=== PATIENT | female | born 1960 | race Caucasian/White ===

== ENCOUNTER 2021-03-15 06:44 | Observation (INO) | payer OTHER, SELFPAY ==
[2021-03-15] VITALS (17 sets, daily range): BP systolic 116–172; BP diastolic 60–98; PULSE 69–139; RESP 16–22; TEMP 36.6–37.2; O2SAT 95–100; BMI 23.4
--- NOTE | 2021-03-15 06:56 | CT_ITS ---
WS: [id number] CT ABDOMEN PELVIS TECHNIQUE: Contrast-enhanced CT of the abdomen and pelvis with coronal and sagittal reformatted image s. CLINICAL INFORMATION: abd pain COMPARISON: CT 5 12,018 DLP: 767.[address] scans at [facility] use at least one of these dose optimization techniques: automat ed exposure control; mA and/or kV adjustment per patient size (includes targeted exams where dose is matched to clinical indication); or iterative reconstruction. FINDINGS:Mild colonic wall thickening and submucosal enhancement involving the cecum and ascending co gigi extending into the transverse colon suspicious for infectious or inflammatory colitis. More sandie l appearing descending colon and sigmoid. Diffuse fatty infiltration the liver. Prior cholecystectomy. Normal spleen. Prior hysterectomy. Prior appendectomy. Portal vein and splenic vein are patent. Mild fatty atrophy of the pancreas. Small eso phageal hiatal hernia. Lung bases are well aerated. Adrenal glands are normal. Normal renal parenchym al enhancement. No hydronephrosis. Normal caliber abdominal aorta. Mild sigmoid constipation. A few normal caliber fluid-filled loops of small bowel in the midabdomen and pelvis. No evidence of high-grade obstruction. No abdominal or pel yasir lymphadenopathy. No inguinal lymphadenopathy. CT/CT abdomen pelvis w con* [id number] IMPRESSION: 1. Mild colonic wall thickening and submucosal enhancement involving the cecum and ascending colon extending into the transverse colon suspicious for infecti ous or inflammatory colitis. More normal appearing descending colon and sigmoid . 2. Normal caliber fluid-filled small bowel loops in the midabdomen and pelvis. No evidence of high-grade obstruction. 3. Prior cholecystectomy. Prior hysterectomy and appendectomy. Postoperative c hanges involving the distal ileum. 4. Tiny esophageal hiatal hernia. 5. Mild diffuse fatty infiltration liver. 6. No other significant findings.
--- NOTE | 2021-03-15 06:59 | W.ED.ABDPA2 ---
HPI - Abdominal Pain General: Chief Complaint: Abdominal Pain Stated Complaint: ABD PAIN Time Seen by Provider: 03/15/21 06:49 History of Present Illness: HPI narrative: 61-year-old female comes in complaining of abdominal pain for the last 2 weeks with persistent nausea and vomiting. She denies any hematochezia melena hematemesis or coffee-ground emesis. Reports having multiple previous surgeries. She is on regular narcotic through her primary care doctor she takes morphine. She is also on benzodiazepines. Patient has extensive allergy list. She is not been seen in the last 2 weeks for this problem. She states she has dysuria but she denies any hematuria. MD elicited complaint: abdominal pain Onset (ago): week(s) (2) Pain Consistency: constant Location: Diffuse Severity: severe Quality: cramping Migration to: no migration Exacerbating factors: eating Relieving factors: nothing Associated Symptoms: Reports anorexia, bloating, GI cramping, dysuria, nausea, poor appetite and vomiting; Denies belching, change in bowel habits, change in stool character, chills, coffee ground emesis, constipation, diarrhea, dyspepsia, excessive flatus, fever(s), heartburn, hematochezia, hematuria, hematemesis, fecal incontinence, loose stools, melena and syncope Review of Systems Const: Denies: fever(s) or chills ENMT: Denies: throat pain, ear or mastoid pain, nasal discharge or nasal congestion Card: Denies: syncope Resp: Denies: dyspnea, productive cough or non-productive cough GI: Reports: nausea, vomiting, bloating and GI cramping; Denies: hematemesis, coffee ground emesis, heartburn, diarrhea, constipation, belching, excessive flatus, fecal incontinence, change in bowel habits, change in stool character, hematochezia or melena : Reports: dysuria; Denies: hematuria Skin/Breast: Denies: rash or pruritus PFSH ED PFSH: Medical History (Updated 03/15/21 @ 10:58 by Franklin Menjivar MD) Anxiety and depression Chronic abdominal pain History of pulmonary embolism Insomnia Migraine headache Personal history of DVT (deep vein thrombosis) Surgical History (Updated 03/15/21 @ 10:55 by Franklin Menjivar MD) History of appendectomy History of hysterectomy History of laparoscopy Multiple surgeries for adhesionolysis, history of partial small bowel resection History of removal of ovarian cyst Family History (Updated 03/15/21 @ 10:55 by Franklin Menjivar MD) Other Diabetes Social History (Updated 03/15/21 @ 10:55 by Franklin Menjivar MD) Smoking and tobacco status: never smoked Alcohol intake: never Physical Exam Const: COMMON NORMALS: no acute distress GENERAL APPEARANCE: cooperative and comfortable ORIENTATION/CONSCIOUSNESS: Yes awake, Yes oriented to person, Yes oriented to place and Yes oriented to time HENMT: COMMON NORMALS: normocephalic, atraumatic, hearing grossly normal bilaterally and external ears normal HEAD & SCALP: normocephalic and atraumatic EXTERNAL EAR: Yes external ears normal Neck/C-Spine: COMMON NORMALS: no JVD Resp: COMMON NORMALS: normal respiratory effort, No retractions, No use of accessory muscles and clear to auscultation bilaterally AUSCULTATION: clear to auscultation bilaterally Cardio: COMMON NORMALS: no JVD, regular rate, regular rhythm and No murmurs present (Cardio) RATE: regular rate RHYTHM: regular rhythm GI: COMMON NORMALS: No hepatosplenomegaly present AUSCULTATION: Yes normoactive bowel sounds PALPATION: Yes Tenderness to palpation present (GI) (Diffuse seems a little bit more focal on exam to the epigastric and left up), No Guarding due to palpation present (GI) and Yes No hepatosplenomegaly present Extremity: COMMON NORMALS: normal to inspection, capillary refill normal, no clubbing, cyanosis or edema, no calf tenderness and no pedal edema Neuro: SENSORIUM/ORIENTATION: Yes oriented to person, Yes oriented to place and Yes oriented to time Skin: COMMON NORMALS: no rashes or lesions noted GENERAL SKIN EXAM: no rashes or lesions noted Course Vital Signs: Vital signs: Vital Signs Temperature 99.0 F 03/15/21 12:00 Pulse Rate 78 03/15/21 12:44 Respiratory Rate 22 H 03/15/21 13:31 Blood Pressure 138/82 03/15/21 12:00 Pulse Oximetry 100 03/15/21 13:31 MDM - Abdominal Pain MDM Narrative: Medical decision making narrative: Patient has persistent nausea despite fluids and pain medications antiemetics complaining of persistent abdominal pain as well. She has been taking relatively large amounts of morphine. She is slightly improved but unable to go home at this point discussed Dr. Marina will admit her to [facility] for pain control fluid replacement antiemetics continued antibiotics for cystitis orders written Lab Data: Labs: Lab Results 03/15/21 03/15/21 03/15/21 Range/Units 06:59 06:59 06:59 WBC 9.9 (4.0-10.0) 10^3/ uL RBC 4.69 (4.1-5.3) 10^6/u L Hgb 14.8 (11.5-15.3) g/dL Hct 42.3 (37.0-47.0) % MCV 90.2 (81-99) fL MCH 31.6 (28.0-34.0) pg MCHC 35.0 (30.0-36.0) g/dL RDW 12.3 (12.1-15.1) % Plt Count 285 (130-400) 10^3/c mm MPV 11.4 H (7.4-10.4) fL Neut % (Auto) 55.0 % Lymph % (Auto) 37.1 % [place] % (Auto) 6.3 % Eos % (Auto) 0.6 % Baso % (Auto) 0.7 % Neut # (Auto) 5.46 (1.8-7.7) 10^3/u L Lymph # (Auto) 3.7 (0.8-4.8) 10^3/u L [place] # (Auto) 0.6 (0.2-0.9) 10^3/u L Eos # (Auto) 0.1 (0.0-0.8) 10^3/u L Baso # (Auto) 0.1 (0.0-0.1) 10^3/u L Nucleated RBC % (a uto) 0 % Nucleated RBCs # 0.0 /100WBC Sodium Cancelled Potassium Cancelled Chloride Cancelled Carbon Dioxide Cancelled Anion Gap Cancelled BUN Cancelled Creatinine Cancelled GFR Calculation Cancelled Glucose Cancelled POC Glucose (70-110) mg/dL Estimat Average Gl ucose 123 Hemoglobin A1c 5.9 (4.0-6.0) % Calculated Osmolal ity Cancelled Calcium Cancelled Magnesium (1.7-2.3) mg/dL Total Bilirubin Cancelled AST Cancelled ALT Cancelled Alkaline Phosphata se Cancelled Total Protein Cancelled Albumin Cancelled Globulin Cancelled Lipase Cancelled TSH (0.27-4.20) uIU/ mL Urine Color (Yellow) Urine Appearance (CLEAR) Urine pH (5-7) Ur Specific Gravit y (1.005-1.030) Urine Protein (Negative) Urine Glucose (UA) (Normal) Urine Ketones (Negative) Urine Blood (Negative) Urine Nitrate (Negative) Urine Bilirubin (Negative) Urine Urobilinogen (Negative) mg/dL Ur Leukocyte Trena ase (Negative) Urine RBC (0-2) /hpf Urine WBC (0-5) /hpf Ur Squamous Epith Cells (0-5) /hpf Ur Transition Epit h Cell /hpf Amorphous Sediment Urine Bacteria (NONE) /hpf Urine Mucus /hpf 03/15/21 03/15/21 03/15/21 Range/Units 07:08 07:15 07:46 WBC (4.0-10.0) 10^3/ uL RBC (4.1-5.3) 10^6/u L Hgb (11.5-15.3) g/dL Hct (37.0-47.0) % MCV (81-99) fL MCH (28.0-34.0) pg MCHC (30.0-36.0) g/dL RDW (12.1-15.1) % Plt Count (130-400) 10^3/c mm MPV (7.4-10.4) fL Neut % (Auto) % Lymph % (Auto) % [place] % (Auto) % Eos % (Auto) % Baso % (Auto) % Neut # (Auto) (1.8-7.7) 10^3/u L Lymph # (Auto) (0.8-4.8) 10^3/u L [place] # (Auto) (0.2-0.9) 10^3/u L Eos # (Auto) (0.0-0.8) 10^3/u L Baso # (Auto) (0.0-0.1) 10^3/u L Nucleated RBC % (a uto) % Nucleated RBCs # /100WBC Sodium 139 Potassium 2.8 L* Chloride 101 Carbon Dioxide 23 Anion Gap 17.8 BUN 14 Creatinine 0.8 GFR Calculation 73.4 L Glucose 118 H POC Glucose 129 H (70-110) mg/dL Estimat Average Gl ucose Hemoglobin A1c (4.0-6.0) % Calculated Osmolal ity 290 Calcium 8.6 Magnesium (1.7-2.3) mg/dL Total Bilirubin 0.6 AST 18 ALT 13 Alkaline Phosphata se 90 Total Protein 7.0 Albumin 3.9 Globulin 3.1 Lipase 29 TSH (0.27-4.20) uIU/ mL Urine Color Yellow (Yellow) Urine Appearance Cloudy (CLEAR) Urine pH 5 (5-7) Ur Specific Gravit y 1.020 (1.005-1.030) Urine Protein Neg (Negative) Urine Glucose (UA) Norm (Normal) Urine Ketones 1+ H (Negative) Urine Blood 2+ H (Negative) Urine Nitrate Negative (Negative) Urine Bilirubin 1+ H (Negative) Urine Urobilinogen 1 H (Negative) mg/dL Ur Leukocyte Trena ase 2+ H (Negative) Urine RBC 0-4 H (0-2) /hpf Urine WBC 55-80 H (0-5) /hpf Ur Squamous Epith Cells 0-4 H (0-5) /hpf Ur Transition Epit h Cell 0-4 /hpf Amorphous Sediment Not Reportable Urine Bacteria 1+ H (NONE) /hpf Urine Mucus 1+ /hpf // Range/Units 07:46 WBC (4.0-10.0) 10^3/ uL RBC (4.1-5.3) 10^6/u L Hgb (11.5-15.3) g/dL Hct (37.0-47.0) % MCV (81-99) fL MCH (28.0-34.0) pg MCHC (30.0-36.0) g/dL RDW (12.1-15.1) % Plt Count (130-400) 10^3/c mm MPV (7.4-10.4) fL Neut % (Auto) % Lymph % (Auto) % [place] % (Auto) % Eos % (Auto) % Baso % (Auto) % Neut # (Auto) (1.8-7.7) 10^3/u L Lymph # (Auto) (0.8-4.8) 10^3/u L [place] # (Auto) (0.2-0.9) 10^3/u L Eos # (Auto) (0.0-0.8) 10^3/u L Baso # (Auto) (0.0-0.1) 10^3/u L Nucleated RBC % (a uto) % Nucleated RBCs # /100WBC Sodium Potassium Chloride Carbon Dioxide Anion Gap BUN Creatinine GFR Calculation Glucose POC Glucose (70-110) mg/dL Estimat Average Gl ucose Hemoglobin A1c (4.0-6.0) % Calculated Osmolal ity Calcium Magnesium 1.5 L (1.7-2.3) mg/dL Total Bilirubin AST ALT Alkaline Phosphata se Total Protein Albumin Globulin Lipase TSH 3.29 (0.27-4.20) uIU/ mL Urine Color (Yellow) Urine Appearance (CLEAR) Urine pH (5-7) Ur Specific Gravit y (1.005-1.030) Urine Protein (Negative) Urine Glucose (UA) (Normal) Urine Ketones (Negative) Urine Blood (Negative) Urine Nitrate (Negative) Urine Bilirubin (Negative) Urine Urobilinogen (Negative) mg/dL Ur Leukocyte Trena ase (Negative) Urine RBC (0-2) /hpf Urine WBC (0-5) /hpf Ur Squamous Epith Cells (0-5) /hpf Ur Transition Epit h Cell /hpf Amorphous Sediment Urine Bacteria (NONE) /hpf Urine Mucus /hpf Discharge Plan Discharge Patient Disposition: Placed in Observation Admit Provider: Franklin Menjivar Clinical Impression: Abdominal pain, Constipation, Colitis, Cystitis Coding Level of Care Code ED Deicer Tester for Chg Fwd Exam Comprehensive
[2021-03-15] MEDS: ondansetron 2 mg/ML SDV 2 mL 4 MG IVP ×3 (07:12→21:05)
[2021-03-15] MEDS: morphine 4 mg/mL SDV 1 mL IVP ×6 (07:12→21:06)
[2021-03-15] MEDS: sodium chloride 0.9% 1,000 ML 999 ML IV (07:13)
[2021-03-15 07:17] LABS: Basophils # 0.1 10^3/uL (0.0-0.1); Basophils % 0.7 %; Eosinophils # 0.1 10^3/uL (0.0-0.8); Eosinophils % 0.6 %; Hematocrit 42.3 % (37.0-47.0); Hemoglobin 14.8 g/dL (11.5-15.3); Lymphocytes # 3.7 10^3/uL (0.8-4.8); Lymphocytes % 37.1 %; Mean Corpuscular Hemoglobin 31.6 pg (28.0-34.0); Mean Corpuscular Volume 90.2 fL (81-99); Mean Platelet Volume 11.4 fL (7.4-10.4); Monocytes # 0.6 10^3/uL (0.2-0.9); Monocytes % 6.3 %; Neutrophils # 5.46 10^3/uL (1.8-7.7); Nucleated Red Blood Cells % 0 %; Platelet Count 285 10^3/cmm (130-400); Red Blood Count 4.69 10^6/uL (4.1-5.3); Red Cell Distribution Width 12.3 % (12.1-15.1); White Blood Count 9.9 10^3/uL (4.0-10.0)
[2021-03-15 07:19] LABS: Glucose Point of Care 129 mg/dL (70-110)
[2021-03-15 07:41] LABS: Urine Appearance Cloudy (CLEAR); Urine Color Yellow (Yellow); pH Urine 5 (5-7)
[2021-03-15 07:42] LABS: Add Urine Microscopic? YES; Bilirubin Urine 1+ (Negative); Blood Urine 2+ (Negative); Glucose Urine UA Norm (Normal); Ketones Urine 1+ (Negative); Leukocyte Esterase Urine 2+ (Negative); Nitrate Urine Negative (Negative); Protein Urine Neg (Negative); Urobilinogen Urine 1 mg/dL (Negative)
[2021-03-15 07:44] LABS: Bacteria Urine 1+ /hpf; Mucus Urine 1+ /hpf; RBC Urine 0-4 /hpf (0-2); Squamous Epithelial Cell Urine 0-4 /hpf (0-5); Transitional Epi Cells Urine 0-4 /hpf; WBC Urine 55-80 /hpf (0-5)
[2021-03-15 07:45] LABS: Add Urine Culture? Yes
[2021-03-15 08:15] LABS: Alanine Aminotransferase 13 U/L (0-33); Albumin Level 3.9 g/dL (3.5-5.2); Alkaline Phosphatase 90 IU/L (35-105); Anion Gap 17.8 (5-19); Aspartate Amino Transferase 18 U/L (0-32); Blood Urea Nitrogen 14 mg/dL (6-20); Calcium 8.6 mg/dL (8.5-10.5); Carbon Dioxide 23 mmol/L (22-29); Chloride 101 mmol/L (98-107); Globulin 3.1 g/dL (1.3-4.6); Glomerular Filtration Rate 73.4 mL/min (90-130); Glucose 118 mg/dL (65-115); Lipase 29 U/L (13-60); Osmolality Calculated 290 mOsm/kg (285-295); Sodium 139 mmol/L (136-145); Total Bilirubin 0.6 mg/dL (0.15-1.2)
[2021-03-15 08:19] LABS: Potassium 2.8 mmol/L (3.5-5.1)
[2021-03-15] MEDS: iohexol 300 mg/mL 100 mL Btl IV (08:31)
[2021-03-15] MEDS: lidocaine 1% 5 ML in potassium chloride premix 100 ML 25 ML IV (08:36)
--- NOTE | 2021-03-15 08:46 | PC.NURSE ---
notified Dr. Pritchett of patient continuing pain; new order rcvd for additional pain medicine.
[2021-03-15] MEDS: ciprofloxacin 400 MG/200 ML PREMIX 200 MG IV ×2 (09:26→20:55)
[2021-03-15] MEDS: LORazepam 2 mg/mL INJ 1 mL IVP (09:50)
[2021-03-15 10:24] LABS: Estmated Average Glucose 123; Hemoglobin A1C 5.9 % (4.0-6.0)
[2021-03-15 10:29] LABS: Magnesium 1.5 mg/dL (1.7-2.3); Thyroid Stimulating Hormone 3.29 uIU/mL (0.27-4.20)
--- NOTE | 2021-03-15 10:49 | PM.HP ---
Providers/Chief Complaint Primary Care Provider: Rach Barr DO Chief Complaint: ABD PAIN History of Present Illness Maritza Graves is a 61 year old female who presents to the emergency department with 2 weeks of intermittent vomiting, difficulty keeping down her regular medicine including morphine she uses for pain. She continues to have rather regular bowel movements, but had one yesterday that was slightly loose. She has had no fevers. She has had some pain at the end of urination. She denies any fevers, but may have had some chills. She states she deals with chronic abdominal pain, from multiple surgeries in the past. She reports no blood in her emesis, stool, or black or tarry stool. She denies any surgery in the last several years. It appears that her last admission here, was for similar complaints for which she was treated for UTI and improved quickly. She has allergies to multiple antibiotics, but reports she can take Cipro. She denies any history of Covid, exposure to Covid, or vaccination for Covid. Review of Systems General: Reports: 10 or more systems reviewed and unremarkable except in HPI and below Const: Reports: chills; Denies: fever(s) Eyes: Denies: change in vision ENMT: Denies: throat pain Card: Denies: chest pain Resp: Denies: dyspnea GI: Reports: abdominal pain, nausea and vomiting; Denies: hematochezia or melena : Reports: flank pain Musc: Denies: neck pain Skin/Breast: Denies: rash Neuro: Denies: headache(s) Psych: Denies: anxiety or depression Parmjit/Lymph: Denies: easy bruising All/Imm: Denies: urticaria Medications/Allergies Home Medications Medication Instructions Recorded Confirmed Last Taken Type calcium carbonate 500 mg calcium 500 mg PO DAILY 03/01/21 03/15/21 03/14/21 History (1,250 mg) tablet clonidine HCl 0.3 mg tablet 0.3 mg PO BEDTIME tab 03/01/21 03/15/21 03/14/21 History diazepam 10 mg tablet 20 mg PO BEDTIME PRN 03/01/21 03/15/21 Unknown History ergocalciferol (vitamin D2) 1,250 1,250 mcg PO Q7D cap 03/01/21 03/15/21 Unknown History mcg (50,000 unit) capsule hydrocodone 7.5 mg-acetaminophen 1 tab PO Q4H PRN 03/01/21 03/15/21 Unknown History 325 mg tablet mirtazapine 30 mg tablet 30 mg PO BEDTIME 03/01/21 03/15/21 03/14/21 History morphine 20 mg/5 mL (4 mg/mL) oral 40 mg PO Q4H PRN MDD SEE PHARMACY 03/01/21 03/15/21 03/11/21 History solution COMMENT MAX 60 ML ondansetron HCl 4 mg tablet 4 mg PO Q6H PRN 03/01/21 03/15/21 Unknown History pantoprazole 40 mg tablet,delayed 40 mg PO BID tab 03/01/21 03/15/21 03/15/21 History release phenazopyridine 100 mg tablet 100 mg PO TID 03/01/21 03/15/21 03/15/21 History pseudoephedrine HCl 30 mg tablet 30 mg PO Q4H PRN tab 03/01/21 03/15/21 Unknown History temazepam 30 mg capsule 30 mg PO BEDTIME PRN cap 03/01/21 03/15/21 Unknown History Allergies Allergy/AdvReac Type Severity Reaction Status Date / Time amitriptyline [From Elavil] Allergy Unknown Verified 03/15/21 06:57 cefdinir Allergy NAUSEA AND Verified 03/15/21 06:57 VOMITING ceftriaxone Allergy RASH Verified 03/15/21 06:57 cephalexin Allergy NAUSEA AND Verified 03/15/21 06:57 VOMITING clindamycin Allergy DIARRHEA, Verified 03/15/21 06:57 NAUSEA AND VOMITING dicyclomine Allergy NAUSEA AND Verified 03/15/21 06:57 VOMITING meperidine Allergy ANXIETY Verified 03/15/21 06:57 metoclopramide Allergy RASH Verified 03/15/21 06:57 metronidazole Allergy HIVES Verified 03/15/21 06:57 Penicillins Allergy HIVES Verified 03/15/21 06:57 prochlorperazine Allergy PALPITATION Verified 03/15/21 06:57 S promethazine Allergy HIVES Verified 03/15/21 06:57 sulfamethoxazole Allergy NAUSEA AND Verified 03/15/21 06:57 [From VOMITING Sulfamethoxazole-Trimethoprim] trimethobenzamide Allergy ANAPHYLAXIS Verified 03/15/21 06:57 trimethoprim Allergy NAUSEA AND Verified 03/15/21 06:57 [From VOMITING Sulfamethoxazole-Trimethoprim] PFSH Acute PFSH: Medical History (Updated 03/15/21 @ 10:58 by Franklin Menjivar MD) Anxiety and depression Chronic abdominal pain History of pulmonary embolism Insomnia Migraine headache Personal history of DVT (deep vein thrombosis) Surgical History (Updated 03/15/21 @ 10:55 by Franklin Menjivar MD) History of appendectomy History of hysterectomy History of laparoscopy Multiple surgeries for adhesionolysis, history of partial small bowel resection History of removal of ovarian cyst Family History (Updated 03/15/21 @ 10:55 by Franklin Menjivar MD) Other Diabetes Social History (Updated 03/15/21 @ 10:55 by Franklin Menjivar MD) Smoking and tobacco status: never smoked Alcohol intake: never Vitals/I&O/Wt Last Vital Signs Temp 98.2 F 03/15/21 06:52 Pulse 98 03/15/21 10:42 Resp 22 H 03/15/21 10:42 BP 133/98 03/15/21 10:42 Pulse Ox 98 03/15/21 10:42 Weight last 48 hrs Weight 54.431 kg Physical Exam Narrative: EXAM NARRATIVE: General exam is an anxious appearing white female, complaining of abdominal pain HEENT: Pupils equally round. Oropharynx is clear. Neck is supple no lymphadenopathy or thyromegaly Cardiovascular tachycardic on admission to the ER, now improved. Regular without murmur Lungs are clear no wheezing or crackles Abdomen is soft. Multiple scars. Positive bowel sounds. Generalized tenderness, increased below the umbilicus. is deferred Extremities no cyanosis clubbing or edema, cap refill brisk Skin no rash Neuro no obvious focal deficits Data : 03/15/21 06:59 03/15/21 07:46 Micro: Microbiology 03/15/21 09:10 Blood Culture - Preliminary Blood SPECIMEN COLLECTED 03/15/21 09:15 Blood Culture - Preliminary Blood SPECIMEN COLLECTED Other data: Calcium is 8.6. LFTs are normal Lipase 29 and normal UA demonstrates 55-80 white blood cells, 0-[address] abdomen pelvis demonstrates some mild colonic wall thickening cecum through transverse colon. Some fluid-filled small bowel is noted, and some stool in the rectum per my read. A&P Assessment and plan (1) Intractable nausea and vomiting: Patient with underlying chronic abdominal pain, and history of recurrent nausea and vomiting. She reports she has not been able to take her morphine regularly recently and has not had any in the last several days secondary to her severe pain. Etiology of her current intractable nausea and vomiting could be withdrawal, increasing her regular pain, complicated UTI. Hydration Pain and nausea control I think bacterial colitis is less likely, but will be on Cipro during this hospital stay. Note that she is allergic to Flagyl. If diarrhea develops consider check for C. difficile toxin. Status: Acute (2) UTI (urinary tract infection): Urine culture Initiate Cipro. Her antibiotic regimen is very limited. In discussing with her the Rocephin that she received last time she reports she had hives with several months ago when she was given it. Status: Acute (3) Hypokalemia: Supplemented in the ED Check potassium Status: Acute (4) Chronic abdominal pain: Check TSH Discussed with her concern that depression/anxiety may worsen her abdominal pain and this could be an avenue for some partial relief. She will consider this and discuss with her primary care provider. Status: Acute (5) Anxiety and depression: She acknowledges that she has had increased stressors lately, with family and has had several deaths in the family. Status: Acute Additional A&P Information Multiple other medical problems as outlined in her past medical history Full code Lovenox for DVT prophylaxis considering past history of DVT/PE Pepcid for GI prophylaxis Attestations Medical Necessity Statement*: Will need less than 2 midnight stay for evaluation and treatment of intractable nausea and vomiting, UTI Time Spent in Patient Care: Greater than 35 minutes Coding Level of Care Code Acute Soil Technologist for [facility] Fwd Diagnoses Intractable nausea and vomiting R11.2 UTI (urinary tract infection) N39.0 Hypokalemia E87.6 Chronic abdominal pain R10.9; G89.29 Anxiety and depression F41.9; F32.9
[2021-03-15] MEDS: famotidine 20 mg/2 mL INJ IVP (13:12)
[2021-03-15] MEDS: enoxaparin 40 mg/0.4 mL Syringe SUBCUT (13:12)
[2021-03-15 13:51] LABS: Glucose Point of Care 100 mg/dL (70-110)
[2021-03-15] MEDS: sodium chloride 0.9% 1,000 ML 100 ML IV (14:48)
[2021-03-15] MEDS: magnesium sulfate premix 2 GM/50 ML PIGGYBACK IV (16:05)
--- NOTE | 2021-03-15 17:21 | PC.NURSE ---
LAte note: REceived patient from ER staff at 1330. Vitals within normal limits. Pt complains of nausea and pain. Morphine and zofran given.
--- NOTE | 2021-03-15 17:23 | PC.NURSE ---
After morphine administration, patient still states pain is 7/10. Patient states that 7/10 is tolerable and she does not want further pain management. THIs is a chronic pain that she is accustomed to.
[2021-03-15] MEDS: mirtazapine 30 mg Tablet PO (20:57)
[2021-03-15] MEDS: cloNIDine 0.1 mg Tablet 0.3 MG PO (20:57)
[2021-03-16] VITALS (10 sets, daily range): BP systolic 102–146; BP diastolic 54–83; PULSE 71–85; RESP 14–18; TEMP 36.1–36.4; O2SAT 96–98
[2021-03-16] MEDS: famotidine 20 mg/2 mL INJ IVP ×2 (00:32→12:05)
[2021-03-16] MEDS: morphine 4 mg/mL SDV 1 mL IVP ×4 (00:33→12:19)
[2021-03-16] MEDS: sodium chloride 0.9% 1,000 ML 100 ML IV ×2 (01:34→12:03)
[2021-03-16 05:45] LABS: Basophils % 0.5 %; Eosinophils # 0.1 10^3/uL (0.0-0.8); Eosinophils % 1.7 %; Hematocrit 35.9 % (37.0-47.0); Hemoglobin 11.6 g/dL (11.5-15.3); Lymphocytes # 2.8 10^3/uL (0.8-4.8); Mean Corpuscular HGB Conc 32.3 g/dL (30.0-36.0); Mean Corpuscular Hemoglobin 30.9 pg (28.0-34.0); Mean Corpuscular Volume 95.5 fL (81-99); Mean Platelet Volume 11.2 fL (7.4-10.4); Monocytes # 0.4 10^3/uL (0.2-0.9); Monocytes % 6.6 %; Neutrophils # 2.42 10^3/uL (1.8-7.7); Neutrophils % 42.2 %; Nucleated Red Blood Cells % 0 %; Platelet Count 168 10^3/cmm (130-400); Red Blood Count 3.76 10^6/uL (4.1-5.3); Red Cell Distribution Width 12.1 % (12.1-15.1); White Blood Count 5.7 10^3/uL (4.0-10.0)
[2021-03-16 06:08] LABS: Alanine Aminotransferase 10 U/L (0-33); Albumin Level 3.5 g/dL (3.5-5.2); Alkaline Phosphatase 79 IU/L (35-105); Blood Urea Nitrogen 7 mg/dL (6-20); Calcium 8.2 mg/dL (8.5-10.5); Carbon Dioxide 19 mmol/L (22-29); Chloride 107 mmol/L (98-107); Globulin 2.8 g/dL (1.3-4.6); Glomerular Filtration Rate 85.6 mL/min (90-130); Glucose 83 mg/dL (65-115); Osmolality Calculated 285 mOsm/kg (285-295); Sodium 139 mmol/L (136-145); Total Bilirubin 0.7 mg/dL (0.15-1.2); Total Protein 6.3 g/dL (6.6-8.7)
[2021-03-16 06:09] LABS: Anion Gap 16.7 (5-19)
[2021-03-16 06:10] LABS: Aspartate Amino Transferase 21 U/L (0-32); Potassium 3.7 mmol/L (3.5-5.1)
[2021-03-16] MEDS: ciprofloxacin 400 MG/200 ML PREMIX 200 MG IV (08:22)
[2021-03-16] MEDS: ondansetron 2 mg/ML SDV 2 mL 4 MG IVP (08:22)
[2021-03-16] MEDS: enoxaparin 40 mg/0.4 mL Syringe SUBCUT (12:05)
--- NOTE | 2021-03-16 12:23 | PC.CHAP ---
Pastoral Care Encounter/Spiritual Assessment Type of Contact [] Declined laboratory courier visit [] Patient/Family/Request visit [] Outpatient visit [] Follow-up visit [] Physician referral [] Code/Alert [X] Routine visit [] Staff referral [] Actively dying [] Patient sleeping [] Family support [] [] Out of room [] Palliative care [] [] Receiving care in room [] Pre-surgical visit [] Trauma [] Long length of stay [] ICU visit [] Other: Relational/Emotional Strength [] Patient feels connected with others/family/visitors/staff [] Distress [] Loneliness/isolation [] Abandonment Spirituality of Patient [] Person of Jessica [] Attends Judaism of their Jessica [] Believes in Prayer [] Reads Bible or Mu-Ism materials [] There are Spiritual issues to be addressed Bag Shop Worker Interventions [] Prayer [] Active listening [] Non-anxious presence [] Spiritual/emotional support [] Crisis/trauma care [] Spiritual counseling [] Bereavement support [] Provided bereavement packet [] Provided Bible/devotional materials [] Provided toy/stuffed animal, coloring book to patient or family member [] Provided Communion [] Anointing/[place] [] Salvation [] Completed spiritual assessment [] Other: Impact on Illness or Injury [] Angry [] Fearful [] Anxious [] Often cries [] Exhaustion [] Unable to work [] Unable to attend oriental orthodox [] Unable to walk/stand [] Unable to read [] Unable to drive [] Unable to eat/drink [] Unable to sleep [] Unable to be with family [] Patient intubated [] Other: Summary Already a strong Quaker, it was more like a revival than a patient visit. Most enjoyable. Time spent with patient 25 min
--- NOTE | 2021-03-16 12:24 | PC.PHAR ---
[facility] called to clarify reconciled diazepam dose. Rx written as 10 mg bid but may not be compliant with written directions. Notified Dr. Garvin via [employer] who decided to leave as is for now.
--- NOTE | 2021-03-16 14:16 | PC.NURSE ---
Imipenem held per Dr. Vergara since pt is being discharged.
--- NOTE | 2021-03-16 14:17 | P.DS_ITS ---
Discharge Providers Date of Admission: 03/15/21 11:03 Date of Discharge: March 16, 2021 Attending Provider at Admission: Franklin Menjivar MD Attending Provider at Discharge: Bony Vergara MD Primary Care Provider: Rach Barr DO Diagnoses at Discharge Discharge Diagnosis (1) Intractable nausea and vomiting: Status: Acute (2) UTI (urinary tract infection): Status: Acute (3) Hypokalemia: Status: Acute (4) Chronic abdominal pain: Status: Acute (5) Anxiety and depression: Status: Acute (6) Colitis: Status: Acute Reason for Visit 2 Reason for Visit: ABD PAIN Hospital Course Hospital Course Maritza Graves is a 61 year old female who presents to the emergency department with 2 weeks of intermittent vomiting, difficulty keeping down her regular medicine including morphine she uses for pain. She continues to have rather regular bowel movements, but had one yesterday that was slightly loose. She has had no fevers. She has had some pain at the end of urination. She denies any fevers, but may have had some chills. She states she deals with chronic abdominal pain, from multiple surgeries in the past. She reports no blood in her emesis, stool, or black or tarry stool. She denies any surgery in the last several years. It appears that her last admission here, was for similar complaints for which she was treated for UTI and improved quickly. She has allergies to multiple antibiotics, but reports she can take Cipro. She denies any history of Covid, exposure to Covid, or vaccination for Covid. She is admitted for further management for intractable vomiting as she was unable to keep any food, pain medications down. She was kept NPO. CT abdomen was done which was concerning for colitis. She was started on broad spectrum antibiotics as per allergic profile. She responded well to treatment. She was started on full liquid diet which she tolerated well. She is been discharged hemodynamically stable condition with advised to continue taking full liquid diet and advance gradually to regular diet within next 3 to 4 days as tolerated. She is to take oral ciprofloxacin as per her allergy profile for next 5 days. Patient should be taking Flagyl as well but unfortunately patient is allergic with a rash to medication. She is to follow-up with her primary care provider within next 1 week. Patient's care discussed with her detail and she is agreeable to same. Physical Exam Narrative: EXAM NARRATIVE: General exam is an anxious appearing white female, complaining of abdominal pain HEENT: Pupils equally round. Oropharynx is clear. Neck is supple no lymphadenopathy or thyromegaly Cardiovascular tachycardic on admission to the ER, now improved. Regular without murmur Lungs are clear no wheezing or crackles Abdomen is soft. Multiple scars. Positive bowel sounds. Generalized tenderness, increased below the umbilicus. is deferred Extremities no cyanosis clubbing or edema, cap refill brisk Skin no rash Neuro no obvious focal deficits Discharge Data Data Completed and Pending: Completed Studies During Hospitalization Category Date Time Status CT abdomen pelvis w con* [id number] Stat Cat Scan 03/15/21 06:56 Completed Pending at discharge Category Date Time Status Blood Culture Sta t Lab 03/15/21 09:10 Results Clostridioides Di fficile PCR Routin e Lab 03/16/21 12:06 Ordered Enteric Bacterial Panel by PCR Rout ine Lab 03/16/21 12:06 Ordered Enteric Parasite Panel by PCR Routi ne Lab 03/16/21 12:06 Ordered Immunochemical Fe aurelia OCB Routine Lab 03/16/21 12:06 Ordered Lactoferrin Routi ne Lab 03/16/21 12:06 Ordered Urine Culture Sta t Lab 03/15/21 07:08 Results Labs from last 24 hours 03/16/21 03/16/21 04:57 04:57 WBC 5.7 RBC 3.76 L Hgb 11.6 Hct 35.9 L MCV 95.5 D MCH 30.9 MCHC 32.3 D RDW 12.1 Plt Count 168 MPV 11.2 H Neut % (Auto) 42.2 Lymph % (Auto) 49.0 Wallace % (Auto) 6.6 Eos % (Auto) 1.7 Baso % (Auto) 0.5 Neut # (Auto) 2.42 Lymph # (Auto) 2.8 Wallace # (Auto) 0.4 Eos # (Auto) 0.1 Baso # (Auto) 0.0 Nucleated RBC % (a uto) 0 Nucleated RBCs # 0.0 Sodium 139 Potassium 3.7 Chloride 107 Carbon Dioxide 19 L Anion Gap 16.7 BUN 7 Creatinine 0.7 GFR Calculation 85.6 L Glucose 83 Calculated Osmolal ity 285 Calcium 8.2 L Total Bilirubin 0.7 AST 21 ALT 10 Alkaline Phosphata se 79 Total Protein 6.3 L Albumin 3.5 Globulin 2.8 Addt'l Data from Hospital Stay: Laboratory Results WBC 5.7 10^3/uL (4.0- 10.0) 03/16/21 04:57 RBC 3.76 10^6/uL (4.1 -5.3) L 03/16/21 04:57 Hgb 11.6 g/dL (11.5-1 5.3) 03/16/21 04:57 Hct 35.9 % (37.0-47.0 ) L 03/16/21 04:57 MCV 95.5 fL (81-99) D 03/16/21 04:57 MCH 30.9 pg (28.0-34. 0) 03/16/21 04:57 MCHC 32.3 g/dL (30.0-3 6.0) D 03/16/21 04:57 RDW 12.1 % (12.1-15.1 ) 03/16/21 04:57 Plt Count 168 10^3/cmm (130 -400) 03/16/21 04:57 MPV 11.2 fL (7.4-10.4 ) H 03/16/21 04:57 Neut % (Auto) 42.2 % 03/16/21 04:57 Lymph % (Auto) 49.0 % 03/16/21 04:57 Wallace % (Auto) 6.6 % 03/16/21 04:57 Eos % (Auto) 1.7 % 03/16/21 04:57 Baso % (Auto) 0.5 % 03/16/21 04:57 Neut # (Auto) 2.42 10^3/uL (1.8 -7.7) 03/16/21 04:57 Lymph # (Auto) 2.8 10^3/uL (0.8- 4.8) 03/16/21 04:57 Wallace # (Auto) 0.4 10^3/uL (0.2- 0.9) 03/16/21 04:57 Eos # (Auto) 0.1 10^3/uL (0.0- 0.8) 03/16/21 04:57 Baso # (Auto) 0.0 10^3/uL (0.0- 0.1) 03/16/21 04:57 Nucleated RBC % (a uto) 0 % 03/16/21 04:57 Nucleated RBCs # 0.0 /100WBC 03/16/21 04:57 Sodium 139 mmol/L (136-1 45) 03/16/21 04:57 Potassium 3.7 mmol/L (3.5-5 .1) 03/16/21 04:57 Chloride 107 mmol/L (98-10 7) 03/16/21 04:57 Carbon Dioxide 19 mmol/L (22-29) L 03/16/21 04:57 Anion Gap 16.7 (5-19) 03/16/21 04:57 BUN 7 mg/dL (6-20) 03/16/21 04:57 Creatinine 0.7 mg/dL (0.5-0. 9) 03/16/21 04:57 GFR Calculation 85.6 mL/min (90-1 30) L 03/16/21 04:57 Glucose 83 mg/dL (65-115) 03/16/21 04:57 POC Glucose 100 mg/dL (70-110 ) 03/15/21 13:40 Estimat Average Gl ucose 123 03/15/21 06:59 Hemoglobin A1c 5.9 % (4.0-6.0) 03/15/21 06:59 Calculated Osmolal ity 285 mOsm/kg (285- 295) 03/16/21 04:57 Calcium 8.2 mg/dL (8.5-10 .5) L 03/16/21 04:57 Magnesium 1.5 mg/dL (1.7-2. 3) L 03/15/21 07:46 Total Bilirubin 0.7 mg/dL (0.15-1 .2) 03/16/21 04:57 AST 21 U/L (0-32) 03/16/21 04:57 ALT 10 U/L (0-33) 03/16/21 04:57 Alkaline Phosphata se 79 IU/L (35-105) 03/16/21 04:57 Total Protein 6.3 g/dL (6.6-8.7 ) L 03/16/21 04:57 Albumin 3.5 g/dL (3.5-5.2 ) 03/16/21 04:57 Globulin 2.8 g/dL (1.3-4.6 ) 03/16/21 04:57 Lipase 29 U/L (13-60) 03/15/21 07:46 TSH 3.29 uIU/mL (0.27 -4.20) 03/15/21 07:46 Urine Color Yellow (Yellow) 03/15/21 07:08 Urine Appearance Cloudy (CLEAR) 03/15/21 07:08 Urine pH 5 (5-7) 03/15/21 07:08 Ur Specific Gravit y 1.020 (1.005-1.0 30) 03/15/21 07:08 Urine Protein Neg (Negative) 03/15/21 07:08 Urine Glucose (UA) Norm (Normal) 03/15/21 07:08 Urine Ketones 1+ (Negative) H 03/15/21 07:08 Urine Blood 2+ (Negative) H 03/15/21 07:08 Urine Nitrate Negative (Negati ve) 03/15/21 07:08 Urine Bilirubin 1+ (Negative) H 03/15/21 07:08 Urine Urobilinogen 1 mg/dL (Negative ) H 03/15/21 07:08 Ur Leukocyte Trena ase 2+ (Negative) H 03/15/21 07:08 Urine RBC 0-4 /hpf (0-2) H 03/15/21 07:08 Urine WBC 55-80 /hpf (0-5) H 03/15/21 07:08 Ur Squamous Epith Cells 0-4 /hpf (0-5) H 03/15/21 07:08 Ur Transition Epit h Cell 0-4 /hpf 03/15/21 07:08 Amorphous Sediment Not Reportable 03/15/21 07:08 Urine Bacteria 1+ /hpf (NONE) H 03/15/21 07:08 Urine Mucus 1+ /hpf 03/15/21 07:08 Impressions Abdomen/Pelvis CT 03/15/21 06:56 IMPRESSION: 1. Mild colonic wall thickening and submucosal enhancement involving the cecum and ascending colon extending into the transverse colon suspicious for infectious or inflammatory colitis. More normal appearing descending colon and sigmoid. 2. Normal caliber fluid-filled small bowel loops in the midabdomen and pelvis. No evidence of high-grade obstruction. 3. Prior cholecystectomy. Prior hysterectomy and appendectomy. Postoperative changes involving the distal ileum. 4. Tiny esophageal hiatal hernia. 5. Mild diffuse fatty infiltration liver. 6. No other significant findings. Vitals: Last Vital Signs Temp 97.4 F L 03/16/21 12:00 Pulse 85 03/16/21 12:00 Resp 16 03/16/21 12:19 BP 146/83 03/16/21 12:00 Pulse Ox 98 03/16/21 12:00 Discharge Plan Discharge Patient Disposition: Home Condition: Stable Prescriptions: New ciprofloxacin 500 mg/5 mL suspension,microcapsule recon 500 mg PO Q12H 10 Days Qty: 100 RF: 0 ondansetron HCl 4 mg/5 mL solution 4 mg PO Q8H PRN (Reason: nausea and vomiting) 3 Days Qty: 150 RF: 0 Continued morphine 20 mg/5 mL (4 mg/mL) solution 40 mg PO Q4H MDD SEE PHARMACY COMMENT MAX 60 ML PRN (Reason: Pain) RF: 0 hydrocodone-acetaminophen 7.5-325 mg tablet 1 tab PO Q4H PRN (Reason: Pain) RF: 0 temazepam 30 mg capsule 30 mg PO BEDTIME PRN (Reason: Insomnia) RF: 0 diazepam 10 mg tablet 20 mg PO BEDTIME PRN (Reason: Insomnia) RF: 0 pseudoephedrine HCl 30 mg tablet 30 mg PO Q4H PRN (Reason: Congestion) RF: 0 clonidine HCl 0.3 mg tablet 0.3 mg PO BEDTIME RF: 0 pantoprazole 40 mg tablet,delayed release (DR/EC) 40 mg PO BID RF: 0 ondansetron HCl 4 mg tablet 4 mg PO Q6H PRN (Reason: Nausea) RF: 0 mirtazapine 30 mg tablet 30 mg PO BEDTIME RF: 0 ergocalciferol (vitamin D2) 1,250 mcg (50,000 unit) capsule 1,250 mcg PO Q7D RF: 0 calcium carbonate [Calcium 500] 500 mg calcium (1,250 mg) tablet 500 mg PO DAILY RF: 0 phenazopyridine 100 mg tablet 100 mg PO TID RF: 0 Discharge Orders: Discharge Order (Routine); Ordered 03/16/21 Ordered By: Bony Vergara Referrals: Rach Barr DO [Primary Care Provider] - 1 week Discharge Diet: Advance as tolerated, Usual diet and Full LIquid Discharge Activity: Resume usual activity Patient Instructions: Opioid Safety Activity Restrictions/Additional Instructions: Please follow-up with your primary care provider within next 1 week. Please continue taking full liquid diet for next two or 3 days and advance to GI soft diet eventually as tolerated. Please try to use more fibrous food. Please avoid nuts. Please try to drink 2 to 3 L of fluid daily. You'll be on ciprofloxacin which will be the antibiotic for next 5 days. Discharge Attestations Time Spent in Discharge Care*: greater than 30 min Specific Discharge Activities: educating patient, discussing with pcp/other providers, discussing with correctional casework specialist/social workers/dc planners, documenting/other paperwork and evaluating patient/reviewing data Status at Discharge: Cognitive status at discharge: cognitively intact , Behavioral status at discharge: cooperative , Functional status at discharge: uses cane/walker Overall status at discharge: patient is progressing back to baseline Quality Metrics Clinical Quality Measures During this hospital stay, did patient experience: None Coding Level of Care Code Acute Chg FW DC note Diagnoses Intractable nausea and vomiting R11.2 UTI (urinary tract infection) N39.0 Hypokalemia E87.6 Chronic abdominal pain R10.9; G89.29 Anxiety and depression F41.9; F32.9 Colitis K52.9
== END 2021-03-16 16:04 | disposition home or self-care (01) ==
LOC: ER 10:45 → MEDSURG 11:55
PROVIDERS: Admitting Provider Internal Medicine; Emergency Provider Family Medicine; PCP Family Medicine; Visit Provider Student in an Organized Health Care Education/Training Program
DX: R11.2 Nausea with vomiting, unspecified (principal); N39.0 Urinary tract infection, site not specified; E87.6 Hypokalemia; G89.29 Other chronic pain; R10.9 Unspecified abdominal pain; F41.9 Anxiety disorder, unspecified; F32.9 Major depressive disorder, single episode, unspecified; K52.9 Noninfective gastroenteritis and colitis, unspecified
CPT/HCPCS: 36415; 36416; 74177; 80053; 81001; 82962; 83036; 83690; 83735; 84443; 85025; 87040; 87086; 96365; 96366; 96367; 96372; 96375; 96376; 99285; G0378; J0744; J1650; J2060; J2270; J2405; J3475; J3480; J3490; J7030; Q9967

== ENCOUNTER → 2021-04-04 15:43 | Outpatient (BNVA) | payer OTHER, MEDICARE, SELFPAY | PROVIDERS: PCP Family Medicine; Referring Provider Family Medicine; Visit Provider Nurse Practitioner Family | DX: N39.0 Urinary tract infection, site not specified (principal) | CPT/HCPCS: 81003; 87086 ==

== ENCOUNTER → 2021-07-04 15:59 | Outpatient (BNVA) | payer OTHER, MEDICARE, SELFPAY | PROVIDERS: PCP Family Medicine; Visit Provider Nurse Practitioner | DX: M25.512 Pain in left shoulder (principal); M19.012 Primary osteoarthritis, left shoulder | CPT/HCPCS: 73030; 73080 ==

== ENCOUNTER 2021-08-18 15:20 | Emergency (ER) | payer OTHER, MEDICARE, SELFPAY ==
[2021-08-18] VITALS (8 sets, daily range): BP systolic 111–129; BP diastolic 61–79; PULSE 64–108; RESP 16–22; TEMP 36.8; O2SAT 95–99
--- NOTE | 2021-08-18 15:49 | ED_ITS ---
Documented by User: Christian Cervantes MD 08/24/21 00:37 HPI - Abdominal Pain General: Chief Complaint: Abdominal Pain Stated Complaint: ABD PAINS VOMITING Time Seen by Provider: 08/18/21 15:49 History of Present Illness: HPI narrative: Ms. Graves is a 61-year-old lady with complex past surgical history including multiple abdominal surgeries who presents to the emergency department due to abdominal pain. Symptom onset was 1 week ago and subacute. She initially noticed some vomiting and over the next day or so developed worsening abdominal pain. Abdominal pain is bilateral on the sides and suprapubic region. She baseline has pain however this is worse than her baseline. She denies associated vomiting and has only been able to keep down small amounts of water. She is still having bowel movements. Overall the course has been worsening. Intensity is moderate to severe. She has tried home medications without significant relief. No other specific exacerbating or alleviating factors. Review of Systems General: Reports: 10 or more systems reviewed and unremarkable except in HPI and below PFSH ED PFSH: Medical History Abdominal pain Anxiety and depression Chronic abdominal pain Constipation Cystitis History of pulmonary embolism Insomnia Intractable nausea and vomiting Migraine headache Personal history of DVT (deep vein thrombosis) Recurrent UTI UTI (urinary tract infection) Surgical History History of appendectomy History of hysterectomy History of laparoscopy Multiple surgeries for adhesionolysis, history of partial small bowel resection History of removal of ovarian cyst Family History Father , AT AGE 92 No problems noted. Mother Hypertension Other Diabetes Social History Smoking and tobacco status: never smoked Alcohol intake: never Marital status: Current occupational status: disabled History of recent travel: No Physical Exam Narrative: EXAM NARRATIVE: GENERAL/CONSTITUTIONAL -somewhat ill-appearing. Uncomfortable with cramping episodic pain. Eyes - PERRL, no conjunctival injection ENMT - Atraumatic external nose and ears. Moist mucous membranes NECK - supple. trachea midline CARDIOVASCULAR -tachycardic rate and regular rhythm. Normal peripheral perfusion RESPIRATORY -clear to auscultation bilaterally. ABDOMEN/GI -generalized tenderness palpation. No focal peritonitis MSK - Extremities without obvious deformity or tenderness to palpation SKIN - Warm, Dry NEURO - alert and appropriately oriented. Moves all extremities equally. Course ED course: - Patient was seen and evaluated by me at bedside - Patient placed on cardiac monitors, IV access obtained - Initial evaluation notable for somewhat ill appearance, abdominal tenderness as noted above. -Symptom treatment ordered - Labs notable for minimal leukocytosis. Metabolic panel without acute abnorm ality to explain patient's symptoms. Patient is on Azo which confounds urinalysis - Imaging notable for likely chronic or recurrent colitis - Upon serial reexamination after treatment the patient was only transiently improved. Additional symptom treatment ordered. Patient care handed off to overnight ED physician Dr. Hollis pending reassessment for symptom control and toleration of p.o. intake. Vital Signs: Vital signs: Vital Signs Temperature 98.3 F 08/18/21 15:36 Pulse Rate 64 08/18/21 19:00 Respiratory Rate 22 H 08/18/21 19:10 Blood Pressure 123/61 08/18/21 19:00 Pulse Oximetry 98 08/18/21 19:10 MDM - Abdominal Pain Medical Records: Attestation: I reviewed the patient's medical records. Lab Data: Attestation: I reviewed the patient's lab results. Labs: Lab Results 08/18/21 08/18/21 08/18/21 16:21 16:35 16:44 WBC 11.0 10^3/uL H 10 ^3/uL (4.0-10.0) RBC 4.61 10^6/uL 10^6 /uL (4.1-5.3) Hgb 14.7 g/dL g/dL (11.5-15.3) Hct 42.6 % % (37.0-47.0) MCV 92.4 fl fl (81-99) MCH 31.9 pg pg (28.0-34.0) MCHC 34.5 g/dL g/dL (30.0-36.0) RDW 12.3 % % (12.1-15.1) Plt Count 274 10^3/cmm 10^3 /cmm (130-400) MPV 10.3 fL fL (7.4-10.4) Neut % (Auto) 54.4 % % Lymph % (Auto) 38.6 % % [place] % (Auto) 5.7 % % Eos % (Auto) 0.5 % % Baso % (Auto) 0.5 % % Neut # (Auto) 5.99 10^3/uL 10^3 /uL (1.8-7.7) Lymph # (Auto) 4.3 10^3/uL 10^3/ uL (0.8-4.8) [place] # (Auto) 0.6 10^3/uL 10^3/ uL (0.2-0.9) Eos # (Auto) 0.1 10^3/uL 10^3/ uL (0.0-0.8) Baso # (Auto) 0.1 10^3/uL 10^3/ uL (0.0-0.1) Nucleated RBC % (a uto) 0 % % Nucleated RBCs # 0.0 /100WBC /100W BC Sodium Potassium Chloride Carbon Dioxide Anion Gap BUN Creatinine GFR Calculation Glucose POC Glucose 103 mg/dL mg/dL (70-110) Calculated Osmolal ity Lactate Calcium Phosphorus Magnesium Total Bilirubin AST ALT Alkaline Phosphata se Total Protein Albumin Globulin Lipase Urine Color [place] (Yellow) Urine Appearance Hazy A (CLEAR) Urine pH TNP Ur Specific Gravit y TNP Urine Protein TNP Urine Glucose (UA) TNP Urine Ketones TNP Urine Blood TNP Urine Nitrate TNP Urine Bilirubin TNP Urine Urobilinogen TNP Ur Leukocyte Trena ase TNP Urine RBC 10-15 /hpf H /hpf (0-2) Urine WBC 80-100 /hpf H /hp f (0-5) Ur Squamous Epith Cells 5-10 /hpf H /hpf (0-5) Amorphous Sediment Not Reportable Urine Bacteria 2+ /hpf H /hpf (NONE) Urine Mucus 2+ /hpf /hpf 08/18/21 08/18/21 16:44 16:44 WBC RBC Hgb Hct MCV MCH MCHC RDW Plt Count MPV Neut % (Auto) Lymph % (Auto) [place] % (Auto) Eos % (Auto) Baso % (Auto) Neut # (Auto) Lymph # (Auto) [place] # (Auto) Eos # (Auto) Baso # (Auto) Nucleated RBC % (a uto) Nucleated RBCs # Sodium 138 mmol/L mmol/L (136-145) Potassium 3.5 mmol/L mmol/L (3.5-5.1) Chloride 96 mmol/L L mmol/ L (98-107) Carbon Dioxide 25 mmol/L mmol/L (22-29) Anion Gap 20.5 H (5-19) BUN 22 mg/dL H mg/dL (6-20) Creatinine 1.1 mg/dL H mg/dL (0.5-0.9) GFR Calculation 50.8 mL/min L mL/ min (90-130) Glucose 102 mg/dL mg/dL (65-115) POC Glucose Calculated Osmolal ity 290 mOsm/kg mOsm/ kg (285-295) Lactate 1.6 mmol/L mmol/L (0.5-2.2) Calcium 9.5 mg/dL mg/dL (8.5-10.5) Phosphorus 2.7 mg/dL mg/dL (2.5-4.5) Magnesium 1.8 mg/dL mg/dL (1.7-2.3) Total Bilirubin 0.9 mg/dL mg/dL (0.15-1.2) AST 21 U/L U/L (0-32) ALT 14 U/L U/L (0-33) Alkaline Phosphata se 110 IU/L H IU/L (35-105) Total Protein 9.2 g/dL H g/dL (6.6-8.7) Albumin 5.0 g/dL g/dL (3.5-5.2) Globulin 4.2 g/dL g/dL (1.3-4.6) Lipase 45 U/L U/L (13-60) Urine Color Urine Appearance Urine pH Ur Specific Gravit y Urine Protein Urine Glucose (UA) Urine Ketones Urine Blood Urine Nitrate Urine Bilirubin Urine Urobilinogen Ur Leukocyte Trena ase Urine RBC Urine WBC Ur Squamous Epith Cells Amorphous Sediment Urine Bacteria Urine Mucus EKG Data ^: EKG 1: Attestation: I personally reviewed and interpreted this EKG as follows: EKG interpretation date: 08/18/21 EKG interpretation time: 16:21 Interpretation: Twelve-lead EKG shows a regular rhythm at a rate of 102. NH interval 137, QRS duration 85, QTc 444. Normal axis. Interpretation: Sinus tachycardia. Mildly limited interpretation due to baseline artifact V1 through V3 Discharge Plan Discharge Patient Disposition: Home Clinical Impression: Colitis, Abdominal pain Condition: Stable Prescriptions: New ondansetron 4 mg tablet,disintegrating 4 mg PO Q6H PRN (Reason: nausea and vomiting) Qty: 14 RF: 0 ciprofloxacin HCl [Cipro] 500 mg tablet 500 mg PO BID Qty: 14 RF: 0 No Action morphine 20 mg/5 mL (4 mg/mL) solution 40 mg PO Q4H MDD SEE PHARMACY COMMENT MAX 60 ML PRN (Reason: Pain) RF: 0 temazepam 30 mg capsule 30 mg PO BEDTIME PRN (Reason: Insomnia) RF: 0 diazepam 10 mg tablet 20 mg PO BEDTIME PRN (Reason: Insomnia) RF: 0 pseudoephedrine HCl 30 mg tablet 30 mg PO Q4H PRN (Reason: Congestion) RF: 0 clonidine HCl 0.3 mg tablet 0.3 mg PO BEDTIME RF: 0 pantoprazole 40 mg tablet,delayed release (DR/EC) 40 mg PO BID RF: 0 mirtazapine 30 mg tablet 30 mg PO BEDTIME RF: 0 ergocalciferol (vitamin D2) 1,250 mcg (50,000 unit) capsule 1,250 mcg PO Q7D RF: 0 phenazopyridine 100 mg tablet 100 mg PO TID RF: 0 Discharge Orders: Discharge ED (Routine); Ordered 08/18/21 Ordered By: Zoraida Hollis Referrals: Rach Barr DO [Primary Care Provider] - 1-3 days Discharge Diet: Advance as tolerated Discharge Activity: Resume usual activity Patient Instructions: Abdominal Pain (ED), Colitis (ED), Opioid Safety Coding Level of Care Code ED Machinist Brake for Chg Fwd Exam Comprehensive Documented by User: Zoraida Hollis MD 08/18/21 19:40 HPI - Abdominal Pain General: Chief Complaint: Abdominal Pain Stated Complaint: ABD PAINS VOMITING Time Seen by Provider: 08/18/21 15:49 PFSH ED PFSH: Medical History Abdominal pain Anxiety and depression Chronic abdominal pain Constipation Cystitis History of pulmonary embolism Insomnia Intractable nausea and vomiting Migraine headache Personal history of DVT (deep vein thrombosis) Recurrent UTI UTI (urinary tract infection) Surgical History History of appendectomy History of hysterectomy History of laparoscopy Multiple surgeries for adhesionolysis, history of partial small bowel resection History of removal of ovarian cyst Family History Father , AT AGE 92 No problems noted. Mother Hypertension Other Diabetes Social History Smoking and tobacco status: never smoked Alcohol intake: never Marital status: Current occupational status: disabled History of recent travel: No Physical Exam Const: COMMON NORMALS: no acute distress, patient oriented x3 and healthy appearing HENMT: COMMON NORMALS: normocephalic and atraumatic HEAD & SCALP: normocephalic and atraumatic Eye: COMMON NORMALS: Equal, round and reactive pupils present and EOMs intact bilaterally PUPIL: Yes Equal, round and reactive pupils present Neck/C-Spine: COMMON NORMALS: full ROM and supple Chest: COMMONS NORMALS: normal inspection of the chest and normal palpation of entire chest wall Resp: COMMON NORMALS: normal respiratory effort, No retractions, No use of accessory muscles and clear to auscultation bilaterally AUSCULTATION: clear to auscultation bilaterally Cardio: COMMON NORMALS: regular rate, regular rhythm and No murmurs present (Cardio) RATE: regular rate RHYTHM: regular rhythm GI: COMMON NORMALS: Normal to inspection, nondistended, normoactive bowel sounds present, Soft to palpation, non-tender and no masses PALPATION: Yes Soft to palpation Extremity: COMMON NORMALS: normal to inspection and full ROM Neuro: COMMON NORMALS: patient oriented x3, moves all extremities and no focal motor deficits Psych: COMMON NORMALS: mental status grossly normal, Normal thought process present and cooperative THOUGHT PROCESS: Normal thought process present Skin: COMMON NORMALS: no rashes or lesions noted and no wounds GENERAL SKIN EXAM: no rashes or lesions noted Course Vital Signs: Vital signs: Vital Signs Temperature 98.3 F 08/18/21 15:36 Pulse Rate 64 08/18/21 19:00 Respiratory Rate 22 H 08/18/21 19:10 Blood Pressure 123/61 08/18/21 19:00 Pulse Oximetry 98 08/18/21 19:10 MDM - Abdominal Pain MDM Narrative: Medical decision making narrative: Patient presents with abdominal pain that is chronic in nature CT showed chronic colitis versus possible acute patient's blood work here is normal will prescribe pain meds nausea medicine and antibiotics. She is stable for discharge is to follow-up with PCP and return if worsening. Lab Data: Labs: Lab Results 08/18/21 08/18/21 08/18/21 16:21 16:35 16:44 WBC 11.0 10^3/uL H 10 ^3/uL (4.0-10.0) RBC 4.61 10^6/uL 10^6 /uL (4.1-5.3) Hgb 14.7 g/dL g/dL (11.5-15.3) Hct 42.6 % % (37.0-47.0) MCV 92.4 fl fl (81-99) MCH 31.9 pg pg (28.0-34.0) MCHC 34.5 g/dL g/dL (30.0-36.0) RDW 12.3 % % (12.1-15.1) Plt Count 274 10^3/cmm 10^3 /cmm (130-400) MPV 10.3 fL fL (7.4-10.4) Neut % (Auto) 54.4 % % Lymph % (Auto) 38.6 % % [place] % (Auto) 5.7 % % Eos % (Auto) 0.5 % % Baso % (Auto) 0.5 % % Neut # (Auto) 5.99 10^3/uL 10^3 /uL (1.8-7.7) Lymph # (Auto) 4.3 10^3/uL 10^3/ uL (0.8-4.8) [place] # (Auto) 0.6 10^3/uL 10^3/ uL (0.2-0.9) Eos # (Auto) 0.1 10^3/uL 10^3/ uL (0.0-0.8) Baso # (Auto) 0.1 10^3/uL 10^3/ uL (0.0-0.1) Nucleated RBC % (a uto) 0 % % Nucleated RBCs # 0.0 /100WBC /100W BC Sodium Potassium Chloride Carbon Dioxide Anion Gap BUN Creatinine GFR Calculation Glucose POC Glucose 103 mg/dL mg/dL (70-110) Calculated Osmolal ity Lactate Calcium Phosphorus Magnesium Total Bilirubin AST ALT Alkaline Phosphata se Total Protein Albumin Globulin Lipase Urine Color [place] (Yellow) Urine Appearance Hazy A (CLEAR) Urine pH TNP Ur Specific Gravit y TNP Urine Protein TNP Urine Glucose (UA) TNP Urine Ketones TNP Urine Blood TNP Urine Nitrate TNP Urine Bilirubin TNP Urine Urobilinogen TNP Ur Leukocyte Trena ase TNP Urine RBC 10-15 /hpf H /hpf (0-2) Urine WBC 80-100 /hpf H /hp f (0-5) Ur Squamous Epith Cells 5-10 /hpf H /hpf (0-5) Amorphous Sediment Not Reportable Urine Bacteria 2+ /hpf H /hpf (NONE) Urine Mucus 2+ /hpf /hpf 08/18/21 08/18/21 16:44 16:44 WBC RBC Hgb Hct MCV MCH MCHC RDW Plt Count MPV Neut % (Auto) Lymph % (Auto) [place] % (Auto) Eos % (Auto) Baso % (Auto) Neut # (Auto) Lymph # (Auto) [place] # (Auto) Eos # (Auto) Baso # (Auto) Nucleated RBC % (a uto) Nucleated RBCs # Sodium 138 mmol/L mmol/L (136-145) Potassium 3.5 mmol/L mmol/L (3.5-5.1) Chloride 96 mmol/L L mmol/ L (98-107) Carbon Dioxide 25 mmol/L mmol/L (22-29) Anion Gap 20.5 H (5-19) BUN 22 mg/dL H mg/dL (6-20) Creatinine 1.1 mg/dL H mg/dL (0.5-0.9) GFR Calculation 50.8 mL/min L mL/ min (90-130) Glucose 102 mg/dL mg/dL (65-115) POC Glucose Calculated Osmolal ity 290 mOsm/kg mOsm/ kg (285-295) Lactate 1.6 mmol/L mmol/L (0.5-2.2) Calcium 9.5 mg/dL mg/dL (8.5-10.5) Phosphorus 2.7 mg/dL mg/dL (2.5-4.5) Magnesium 1.8 mg/dL mg/dL (1.7-2.3) Total Bilirubin 0.9 mg/dL mg/dL (0.15-1.2) AST 21 U/L U/L (0-32) ALT 14 U/L U/L (0-33) Alkaline Phosphata se 110 IU/L H IU/L (35-105) Total Protein 9.2 g/dL H g/dL (6.6-8.7) Albumin 5.0 g/dL g/dL (3.5-5.2) Globulin 4.2 g/dL g/dL (1.3-4.6) Lipase 45 U/L U/L (13-60) Urine Color Urine Appearance Urine pH Ur Specific Gravit y Urine Protein Urine Glucose (UA) Urine Ketones Urine Blood Urine Nitrate Urine Bilirubin Urine Urobilinogen Ur Leukocyte Trena ase Urine RBC Urine WBC Ur Squamous Epith Cells Amorphous Sediment Urine Bacteria Urine Mucus Imaging Data ^: CT Abd/Pel: Radiologist's impression: [place] [address] CT Scan Report Signed Patient: Maritza Graves Unit #: [id number] : 1960 Age/Sex: 61 / F ADM Date: 08/18/21 Loc: ER Room/Bed: Attending Dr: Ordering Provider/Ordering MD: Christian Cervantes MD Date of Service: 08/18/21 Procedure(s): CT abdomen pelvis w con* [id number] Accession Number(s): [id number] Report Number: [id number] PROCEDURE INFORMATION: Exam: CT Abdomen And Pelvis With Contrast Exam date and time: 08/18/2021 4:00 PM Age: 61 years old Clinical indication: Nausea and vomiting; Abdominal pain; Generalized; Prior surgery; Surgery date: 6+ months; Surgery type: Appy, hyst, ov cyst, part sb resect. ; Patient HX: C/O n/v abd pain x 7 days TECHNIQUE: Imaging protocol: Computed tomography of the abdomen and pelvis with contrast. Radiation optimization: All CT scans at this facility use at least one of these dose optimization techniques: automated exposure control; mA and/or kV adjustment per patient size (includes targeted exams where dose is matched to clinical indication); or iterative reconstruction. Contrast material: OMNI 300; Contrast volume: 75 ml; Contrast route: INTRAVENOUS (IV); COMPARISON: CT abdomen pelvis w con* [id number] 03/15/2021 8:23 AM RADIATION DOSE METRICS: Total DLP (mGy-cm): 763.15 FINDINGS: Lungs: Lung bases are clear. Liver: The liver is normal. Gallbladder and bile ducts: The gallbladder is absent. There is ectasia of the common bile duct and central intrahepatic ducts. Pancreas: There is mild atrophy of the pancreas. Spleen: The spleen is unremarkable. Adrenal glands: The adrenal glands are unremarkable. Kidneys and ureters: The kidneys are unremarkable. No hydronephrosis or stones. No ureteral dilation. Stomach and bowel: The stomach is decompressed, preventing meaningful evaluation of wall thickness. The small bowel is nondilated. Unremarkable distal small bowel anastomosis. The colon is partially fluid-filled and partially decompressed. There is diffuse prominent mucosal enhancement throughout colon. No definite pathologic wall thickening or pericolonic edema. Colonic findings are similar to those seen on 03/15/2021. Appendix: The appendix is not visible. Intraperitoneal space: There is no free air or significant intraperitoneal free fluid. Vasculature: The aorta is unremarkable. There is no aneurysm. The portal, splenic and superior mesenteric veins are patent. Lymph nodes: There is no lymphadenopathy in the retroperitoneum, mesentery, pelvis or inguinal regions. Urinary bladder: The urinary bladder is decompressed, preventing meaningful evaluation of wall thickness. Reproductive: The uterus is absent. There is no adnexal mass or large cyst. Bones/joints: Bones are unremarkable. Soft tissues: The abdominal wall is intact. CT/CT abdomen pelvis w con* [id number] IMPRESSION: 1. Diffusely prominent colonic mucosal enhancement suggests chronic or recurrent mild pancolitis. The finding is similar to 03/15/2021. 2. Incidental findings above. Radiation Dose CTDIVOL = (mGy): DLP = 763.15 (mGy-cm) Dictated By: Federico Ramires MD Signed By: Federico Ramires MD Signed Date/Time: 08/18/21 1828 DD/ 1600 Discharge Plan Discharge Patient Disposition: Home Clinical Impression: Colitis, Abdominal pain Condition: Stable Prescriptions: New ondansetron 4 mg tablet,disintegrating 4 mg PO Q6H PRN (Reason: nausea and vomiting) Qty: 14 RF: 0 ciprofloxacin HCl [Cipro] 500 mg tablet 500 mg PO BID Qty: 14 RF: 0 No Action morphine 20 mg/5 mL (4 mg/mL) solution 40 mg PO Q4H MDD SEE PHARMACY COMMENT MAX 60 ML PRN (Reason: Pain) RF: 0 temazepam 30 mg capsule 30 mg PO BEDTIME PRN (Reason: Insomnia) RF: 0 diazepam 10 mg tablet 20 mg PO BEDTIME PRN (Reason: Insomnia) RF: 0 pseudoephedrine HCl 30 mg tablet 30 mg PO Q4H PRN (Reason: Congestion) RF: 0 clonidine HCl 0.3 mg tablet 0.3 mg PO BEDTIME RF: 0 pantoprazole 40 mg tablet,delayed release (DR/EC) 40 mg PO BID RF: 0 mirtazapine 30 mg tablet 30 mg PO BEDTIME RF: 0 ergocalciferol (vitamin D2) 1,250 mcg (50,000 unit) capsule 1,250 mcg PO Q7D RF: 0 phenazopyridine 100 mg tablet 100 mg PO TID RF: 0 Discharge Orders: Discharge ED (Routine); Ordered 08/18/21 Ordered By: Zoraida Hollis Referrals: Rach Barr DO [Primary Care Provider] - 1-3 days Discharge Diet: Advance as tolerated Discharge Activity: Resume usual activity Patient Instructions: Abdominal Pain (ED), Colitis (ED), Opioid Safety Coding Level of Care Code ED Machinist Brake for Namita Fwd Exam Comprehensive
--- NOTE | 2021-08-18 16:00 | CTR_ITS ---
PROCEDURE INFORMATION: Exam: CT Abdomen And Pelvis With Contrast Exam date and time: 08/18/2021 4:00 PM Age: 61 years old Clinical indication: Nausea and vomiting; Abdominal pain; Generalized; Prior surgery; Surgery date: 6+ months; Surgery type: Appy, hyst, ov cyst, part sb resect. ; Patient HX: C/O n/v abd pain x 7 days TECHNIQUE: Imaging protocol: Computed tomography of the abdomen and pelvis with contrast. Radiation optimization: All CT scans at this facility use at least one of these dose optimization techniques: automated exposure control; mA and/or kV adjustment per patient size (includes targeted exams where dose is matched to clinical indication); or iterative reconstruction. Contrast material: OMNI 300; Contrast volume: 75 ml; Contrast route: INTRAVENOUS (IV); COMPARISON: CT abdomen pelvis w con* [id number] 03/15/2021 8:23 AM RADIATION DOSE METRICS: Total DLP (mGy-cm): 763.15 FINDINGS: Lungs: Lung bases are clear. Liver: The liver is normal. Gallbladder and bile ducts: The gallbladder is absent. There is ectasia of the common bile duct and central intrahepatic ducts. Pancreas: There is mild atrophy of the pancreas. Spleen: The spleen is unremarkable. Adrenal glands: The adrenal glands are unremarkable. Kidneys and ureters: The kidneys are unremarkable. No hydronephrosis or stones. No ureteral dilation. Stomach and bowel: The stomach is decompressed, preventing meaningful evaluation of wall thickness. The small bowel is nondilated. Unremarkable distal small bowel anastomosis. The colon is partially fluid-filled and partially decompressed. There is diffuse prominent mucosal enhancement throughout colon. No definite pathologic wall thickening or pericolonic edema. Colonic findings are similar to those seen on 03/15/2021. Appendix: The appendix is not visible. Intraperitoneal space: There is no free air or significant intraperitoneal free fluid. Vasculature: The aorta is unremarkable. There is no aneurysm. The portal, splenic and superior mesenteric veins are patent. Lymph nodes: There is no lymphadenopathy in the retroperitoneum, mesentery, pelvis or inguinal regions. Urinary bladder: The urinary bladder is decompressed, preventing meaningful evaluation of wall thickness. Reproductive: The uterus is absent. There is no adnexal mass or large cyst. Bones/joints: Bones are unremarkable. Soft tissues: The abdominal wall is intact. CT/CT abdomen pelvis w con* [id number] IMPRESSION: 1. Diffusely prominent colonic mucosal enhancement suggests chronic or recurrent mild pancolitis. The finding is similar to 03/15/2021. 2. Incidental findings above. Radiation Dose CTDIVOL = (mGy): DLP = 763.15 (mGy-cm)
--- NOTE | 2021-08-18 16:00 | XR_ITS ---
WS: [id number] PORTABLE CHEST HISTORY: tachycardia COMPARISON: 02/05/2018 Lungs are clear and well expanded. No pleural effusion or pneumothorax. Cardiac size: Normal. Mediastinum/Aorta: Mild atherosclerosis aorta. Osteopenia XR/XR chest 1V portable [id number] IMPRESSION: Unremarkable portable chest.
--- NOTE | 2021-08-18 16:01 | ECG_ITS ---
[facility] Test Date: 2021-08-18 Pat Name: Maritza Graves Department: Room: Gender: Female Platform Operations Director: : 1960 Requested By: Christian Cervantes Order Number: [id number] Ariel MD: Florina Brunson M.D. Measurements Intervals [place] Rate: 102 P: 72 [place]: 137 QRS: 74 QRSD: 85 T: 111 QT: 341 QTc: 444 Interpretive Statements SINUS TACHYCARDIA POSSIBLE LEFT ATRIAL ENLARGEMENT [-0.1mV P-WAVE IN V1/V2] NONSPECIFIC ST & T-WAVE ABNORMALITY ABNORMAL RHYTHM ECG Compared to ECG 02/06/2018 05:48:44 T-wave abnormality now present Sinus rhythm no longer present Electronically Signed On 08-19-2021 19:59:27 CLEARING DISTRIBUTION CLERK by Florina Brunson M.D. [id number]
--- NOTE | 2021-08-18 16:02 | PC.NURSE ---
call to lab for blood to be drawn.
[2021-08-18] MEDS: sodium chloride 0.9% 1,000 ML 999 ML IV (16:10)
[2021-08-18] MEDS: LORazepam 2 mg/mL INJ 1 mL 0.5 MG IVP (16:11)
[2021-08-18] MEDS: morphine 4 mg/mL SDV 1 mL IVP (16:12)
[2021-08-18 16:39] LABS: Glucose Point of Care 103 mg/dL (70-110)
[2021-08-18 17:10] LABS: Basophils # 0.1 10^3/uL (0.0-0.1); Basophils % 0.5 %; Eosinophils # 0.1 10^3/uL (0.0-0.8); Eosinophils % 0.5 %; Hematocrit 42.6 % (37.0-47.0); Hemoglobin 14.7 g/dL (11.5-15.3); Lymphocytes # 4.3 10^3/uL (0.8-4.8); Lymphocytes % 38.6 %; Mean Corpuscular HGB Conc 34.5 g/dL (30.0-36.0); Mean Corpuscular Hemoglobin 31.9 pg (28.0-34.0); Mean Corpuscular Volume 92.4 fl (81-99); Mean Platelet Volume 10.3 fL (7.4-10.4); Monocytes # 0.6 10^3/uL (0.2-0.9); Monocytes % 5.7 %; Neutrophils # 5.99 10^3/uL (1.8-7.7); Neutrophils % 54.4 %; Nucleated Red Blood Cells % 0 %; Platelet Count 274 10^3/cmm (130-400); Red Blood Count 4.61 10^6/uL (4.1-5.3); Red Cell Distribution Width 12.3 % (12.1-15.1)
[2021-08-18 17:36] LABS: Lactate (Lactic Acid level) 1.6 mmol/L (0.5-2.2)
[2021-08-18 17:37] LABS: Potassium 3.5 mmol/L (3.5-5.1); Sodium 138 mmol/L (136-145)
[2021-08-18 17:44] LABS: Add Urine Microscopic? YES; Urine Appearance Hazy (CLEAR); Urine Color Orange (Yellow)
[2021-08-18] MEDS: iohexol 300 mg/mL 100 mL Btl IV (17:48)
[2021-08-18 17:49] LABS: Add Urine Culture? Yes; Bacteria Urine 2+ /hpf; Mucus Urine 2+ /hpf; WBC Urine 80-100 /hpf (0-5)
[2021-08-18 18:00] LABS: Alanine Aminotransferase 14 U/L (0-33); Aspartate Amino Transferase 21 U/L (0-32); Blood Urea Nitrogen 22 mg/dL (6-20); Calcium 9.5 mg/dL (8.5-10.5); Carbon Dioxide 25 mmol/L (22-29); Globulin 4.2 g/dL (1.3-4.6); Glomerular Filtration Rate 50.8 mL/min (90-130); Glucose 102 mg/dL (65-115); Lipase 45 U/L (13-60); Magnesium 1.8 mg/dL (1.7-2.3); Osmolality Calculated 290 mOsm/kg (285-295); Phosphorus 2.7 mg/dL (2.5-4.5); Total Bilirubin 0.9 mg/dL (0.15-1.2); Total Protein 9.2 g/dL (6.6-8.7)
[2021-08-18 18:04] LABS: Alkaline Phosphatase 110 IU/L (35-105); Anion Gap 20.5 (5-19); Chloride 96 mmol/L (98-107)
[2021-08-18] MEDS: HYDROmorphone 1 mg/mL INJ 1 mL 0.5 MG IVP (18:14)
[2021-08-18] MEDS: HYDROmorphone 1 mg/mL INJ 1 mL IVP (19:10)
== END 2021-08-18 19:47 | disposition home or self-care (01) ==
PROVIDERS: Emergency Medicine; Emergency Provider Emergency Medicine; PCP Family Medicine
DX: K52.9 Noninfective gastroenteritis and colitis, unspecified (principal); Z86.711 Personal history of pulmonary embolism
CPT/HCPCS: 36416; 71045; 74177; 80053; 81001; 82962; 83605; 83690; 83735; 84100; 85025; 87086; 93005; 96361; 96374; 96375; 96376; 99284; J1170; J2060; J2270; J7030; Q9967

== ENCOUNTER → 2021-08-19 13:27 | Day surgery (SDC) | payer OTHER, MEDICARE, SELFPAY ==
[2021-08-19 14:24] VITALS: BP 156/93; PULSE 111; RESP 18; TEMP 36.8; O2SAT 95
[2021-08-19] MEDS: sodium chloride 0.9% 1,000 ML 900 ML IV (14:45)
[2021-08-19] MEDS: ondansetron 2 mg/ML SDV 2 mL 4 MG IVP (14:46)
[2021-08-19] MEDS: ciprofloxacin 400 MG/200 ML PREMIX 200 MG IV (14:56)
== END ==
PROVIDERS: PCP Family Medicine; Visit Provider Registered Nurse
DX: K52.9 Noninfective gastroenteritis and colitis, unspecified (principal); N39.0 Urinary tract infection, site not specified
CPT/HCPCS: 96360; 96365; 96374; J0744; J2405; J7030

== ENCOUNTER → 2021-08-20 12:58 | Day surgery (SDC) | payer OTHER, MEDICARE, SELFPAY ==
[2021-08-20] MEDS: sodium chloride 0.9% 1,000 ML 900 ML IV (13:21)
[2021-08-20] MEDS: ciprofloxacin 400 MG/200 ML PREMIX 200 MG IV (13:23)
[2021-08-20] MEDS: ondansetron 2 mg/ML SDV 2 mL 4 MG IVP (13:27)
[2021-08-20 13:33] VITALS: BP 126/71; PULSE 76; RESP 18; TEMP 36.4; O2SAT 98
== END ==
PROVIDERS: PCP Family Medicine; Visit Provider Registered Nurse
DX: K52.9 Noninfective gastroenteritis and colitis, unspecified (principal); N39.0 Urinary tract infection, site not specified
CPT/HCPCS: 96360; 96365; 96374; J0744; J2405; J7030

== ENCOUNTER 2022-03-24 22:11 | Emergency (ER) | payer OTHER, MEDICARE, SELFPAY ==
[2022-03-24 22:24] VITALS: BP 116/81; PULSE 109; RESP 18; TEMP 36.7; O2SAT 97; BMI 20.5
--- NOTE | 2022-03-24 22:31 | CTR_ITS ---
PROCEDURE INFORMATION: Exam: CT Abdomen And Pelvis Without Contrast Exam date and time: 03/24/2022 11:51 PM Age: 62 years old Clinical indication: Nausea and vomiting; Abdominal pain; Generalized; Prior surgery; Surgery type: Hysterectomy. Appy. Gb. Small bowel resection. Multiple adhesion surgeries. Patient HX: Severe abd pain with n/v. 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 ; Additional info: Recurrent abd pain TECHNIQUE: Imaging protocol: Computed tomography of the abdomen and pelvis without contrast. Radiation optimization: All CT scans at this facility use at least one of these dose optimization techniques: automated exposure control; mA and/or kV adjustment per patient size (includes targeted exams where dose is matched to clinical indication); or iterative reconstruction. COMPARISON: CT abdomen pelvis w con* [id number] 08/18/2021 5:32 PM RADIATION DOSE METRICS: Total DLP (mGy-cm): 674.51 FINDINGS: Liver: Normal. No mass. Gallbladder and bile ducts: Stable cholecystectomy. Pancreas: Normal. No ductal dilation. Spleen: Normal. No splenomegaly. Adrenal glands: Normal. No mass. Kidneys and ureters: Normal. No hydronephrosis. Stomach and bowel: Right paramedian bowel anastomosis in the pelvis consistent with previous partial bowel resection. Dilated loops of bowel up to 3.5 cm in diameter consistent with ileus versus enteritis versus partial small bowel obstruction. No obvious transition point. Appendix: No evidence of appendicitis. Intraperitoneal space: Unremarkable. No free air. No significant fluid collection. Vasculature: Calcification of the abdominal aorta and/or iliac arteries consistent with atherosclerotic vessel disease. Lymph nodes: Unremarkable. No enlarged lymph nodes. Urinary bladder: Unremarkable as visualized. Reproductive: Unremarkable as visualized. Bones/joints: Unremarkable. No acute fracture. Soft tissues: Unremarkable. CT/CT abdomen pelvis wo con [id number] IMPRESSION: 1. Right paramedian bowel anastomosis in the pelvis consistent with previous partial bowel resection. 2. Dilated loops of bowel up to 3.5 cm in diameter consistent with ileus versus enteritis versus partial small bowel obstruction. No obvious transition point. Of
--- NOTE | 2022-03-24 22:38 | ED_ITS ---
HPI - Abdominal Pain General: Chief Complaint: Abdominal Pain Stated Complaint: n/v/abd pain Time Seen by Provider: 03/24/22 22:30 History of Present Illness: 62-year-old female comes in with abdominal pain and nausea and vomiting. Patient has been able to hold anything down since last night. Patient does have recurrent history of abdominal pain. Patient relates her abdominal pain to multiple surgeries such as double ligation, bowel obstruction, and surgical adhesions. Patient does go to pain management for her chronic abdominal pain. Patient reports no fever. Patient does appear in moderate pain. Patient reports bowel movement today. Associated Symptoms: Reports nausea and vomiting Review of Systems General: Reports: 10 or more systems reviewed and unremarkable except in HPI and below GI: Reports: abdominal pain, nausea and vomiting PFSH ED PFSH: Medical History Abdominal pain Anxiety and depression Chronic abdominal pain Constipation Cystitis History of pulmonary embolism Insomnia Intractable nausea and vomiting Migraine headache Personal history of DVT (deep vein thrombosis) Recurrent UTI UTI (urinary tract infection) Surgical History History of appendectomy History of hysterectomy History of laparoscopy Multiple surgeries for adhesionolysis, history of partial small bowel resection History of removal of ovarian cyst Family History Father , AT AGE 92 No problems noted. Mother Hypertension Other Diabetes Social History Smoking and tobacco status: never smoked Alcohol intake: never Marital status: Current occupational status: disabled History of recent travel: No Physical Exam Const: COMMON NORMALS: alert HENMT: COMMON NORMALS: normocephalic HEAD & SCALP: normocephalic Neck/C-Spine: COMMON NORMALS: full ROM Resp: COMMON NORMALS: normal respiratory effort and clear to auscultation bilaterally AUSCULTATION: clear to auscultation bilaterally Cardio: COMMON NORMALS: regular rate and regular rhythm RATE: regular rate RHYTHM: regular rhythm GI: COMMON NORMALS: Soft to palpation PALPATION: Yes Soft to palpation, Yes Tenderness to palpation present (GI) (Generalized) and No Guarding due to palpation present (GI) Extremity: COMMON NORMALS: normal to inspection Neuro: SENSORIUM/ORIENTATION: Yes alert Skin: COMMON NORMALS: no rashes or lesions noted GENERAL SKIN EXAM: no rashes or lesions noted Course Vital Signs: Vital signs: Vital Signs Temperature 98.1 F 03/24/22 22:24 Pulse Rate 95 03/25/22 01:30 Respiratory Rate 18 03/25/22 01:30 Blood Pressure 126/82 03/25/22 01:30 Pulse Oximetry 98 03/25/22 01:30 MDM - Abdominal Pain Medical Decision Making 62-year-old female comes in today with generalized abdominal pain. Patient reports unable to hold fluids down since last night. Patient does have a history of recurrent abdominal pain, and for past of bowel obstructions. On exam abdomen soft with some generalized tenderness. No signs of peritonitis. Respirations are even lungs are clear to auscultation. Vital signs are normal except for some elevation in pulse at 109. Differential diagnosis includes but not limited to enteritis, bowel obstruction, ileus, exacerbation of chronic abdominal pain. Laboratory values did note a white count of 19,000, creatinine of 1.2, sodium of 134. Patient was given 2 L of IV fluid, 1 mg of hydromorphone, and 5 mg of Haldol. Patient had significant improvement of pain after treatment. CT of the abdomen pelvis noted previous bowel resection, dilated loops of bowel suggestive of ileus versus enteritis versus partial small bowel obstruction. Reviewed this with Dr. Hollis who recommended that patient go on a clear liquid diet and follow-up with surgeon for further consultation. Patient agreed with plan. No signs of significant bowel obstruction was noted at this time I believe is more of an ileus. Patient was instructed to monitor for worsening pain, blood in vomit or stool, or high fever for need to return to the ER. Case management was requested for surgery follow-up. Patient agreed to plan. Lab Data : 03/24/22 23:20 03/24/22 23:20 Labs/Radiology: Radiology Impressions Abdomen/Pelvis CT 03/24/22 22:31 IMPRESSION: 1. Right paramedian bowel anastomosis in the pelvis consistent with previous partial bowel resection. 2. Dilated loops of bowel up to 3.5 cm in diameter consistent with ileus versus enteritis versus partial small bowel obstruction. No obvious transition point. Of Laboratory Results WBC 19.8 10^3/uL (4.0-10.0) H 03/24/22 23:20 RBC 4.66 10^6/uL (4.1-5.3) 03/24/22 23:20 Hgb 14.4 g/dL (11.5-15.3) 03/24/22 23:20 Hct 40.7 % (37.0-47.0) 03/24/22 23:20 MCV 87.3 fl (81-99) 03/24/22 23:20 MCH 30.9 pg (28.0-34.0) 03/24/22 23:20 MCHC 35.4 g/dL (30.0-36.0) 03/24/22 23:20 RDW 13.0 % (12.1-15.1) 03/24/22 23:20 Plt Count 257 10^3/cmm (130-400) 03/24/22 23:20 MPV 11.1 fL (7.4-10.4) H 03/24/22 23:20 Neut % (Auto) 83.7 % 03/24/22 23:20 Lymph % (Auto) 10.8 % 03/24/22 23:20 Foard % (Auto) 4.4 % 03/24/22 23:20 Eos % (Auto) 0.1 % 03/24/22 23:20 Baso % (Auto) 0.3 % 03/24/22 23:20 Neut # (Auto) 16.58 10^3/uL (1.8-7.7) H 03/24/22 23:20 Lymph # (Auto) 2.1 10^3/uL (0.8-4.8) 03/24/22 23:20 Foard # (Auto) 0.9 10^3/uL (0.2-0.9) 03/24/22 23:20 Eos # (Auto) 0.0 10^3/uL (0.0-0.8) 03/24/22 23:20 Baso # (Auto) 0.1 10^3/uL (0.0-0.1) 03/24/22 23:20 Nucleated RBC % (auto) 0 % 03/24/22 23:20 Nucleated RBCs # 0.0 /100WBC 03/24/22 23:20 Sodium 134 mmol/L (136-145) L 03/24/22 23:20 Potassium 4.7 mmol/L (3.5-5.1) 03/24/22 23:20 Chloride 96 mmol/L (98-107) L 03/24/22 23:20 Carbon Dioxide 20 mmol/L (22-29) L 03/24/22 23:20 Anion Gap 22.7 (5-19) H 03/24/22 23:20 BUN 27 mg/dL (8-23) H 03/24/22 23:20 Creatinine 1.2 mg/dL (0.5-0.9) H 03/24/22 23:20 GFR Calculation 45.8 mL/min (90-130) L 03/24/22 23:20 Glucose 134 mg/dL (65-115) H 03/24/22 23:20 Calculated Osmolality 285 mOsm/kg (285-295) 03/24/22 23:20 Calcium 10.1 mg/dL (8.5-10.5) 03/24/22 23:20 Total Bilirubin 0.7 mg/dL (0.15-1.2) 03/24/22 23:20 AST 25 U/L (0-32) 03/24/22 23:20 ALT 15 U/L (0-33) 03/24/22 23:20 Alkaline Phosphatase 154 IU/L (35-105) H 03/24/22 23:20 Troponin T Gen 5 ng/L 63 ng/L (0-10) H 03/24/22 23:20 Troponin T 120 Minute 43.96 ng/L (0-10) H 03/25/22 00:38 Delta Troponin T -19.04 ABS# (0-10) L 03/25/22 00:38 Total Protein 8.5 g/dL (6.6-8.7) 03/24/22 23:20 Albumin 4.6 g/dL (3.5-5.2) 03/24/22 23:20 Globulin 3.9 g/dL (1.3-4.6) 03/24/22 23:20 Lipase 48 U/L (13-60) 03/24/22 23:20 Urine Color Yellow (Yellow) 03/25/22 01:20 Urine Appearance Clear (CLEAR) 03/25/22 01:20 Urine pH 6 (5-7) 03/25/22 01:20 Ur Specific [place] 1.010 (1.005-1.030) 03/25/22 01:20 Urine Protein Neg (Negative) 03/25/22 01:20 Urine Glucose (UA) Norm (Normal) 03/25/22 01:20 Urine Ketones 1+ (Negative) H 03/25/22 01:20 Urine Blood Neg (Negative) 03/25/22 01:20 Urine Nitrate Negative (Negative) 03/25/22 01:20 Urine Bilirubin Neg (Negative) 03/25/22 01:20 Urine Urobilinogen Norm mg/dL (Negative) 03/25/22 01:20 Ur Leukocyte Esterase Trace (Negative) H 03/25/22 01:20 Urine RBC 0-4 /hpf (0-2) H 03/25/22 01:20 Urine WBC 5-10 /hpf (0-5) H 03/25/22 01:20 Ur Squamous Epith Cells 15-25 /hpf (0-5) H 03/25/22 01:20 Amorphous Sediment Not Reportable 03/25/22 01:20 Urine Bacteria Trace /hpf (NONE) 03/25/22 01:20 Urine Mucus 2+ /hpf 03/25/22 01:20 EKG Data EKG 1: EKG interpretation date: 03/25/22 EKG interpretation time: 01:00 Interpretation: EKG shows a sinus tachycardia with a regular rate at [address] elevation or ectopy is noted. Patient does have a T wave abnormality that is unchanged from prior exam. Discharge Plan Discharge Patient Disposition: Home Clinical Impression: Ileus Abdominal pain Qualifiers: Abdominal location: generalized Qualified Code(s): R10.84 - Generalized abdomi nal pain Condition: Stable Prescriptions: Continued ondansetron 4 mg tablet,disintegrating 4 mg PO Q6H PRN (Reason: nausea and vomiting) Qty: 14 0RF No Action morphine 20 mg/5 mL (4 mg/mL) solution 40 mg PO Q4H MDD SEE PHARMACY COMMENT MAX 60 ML PRN (Reason: Pain) 0RF temazepam 30 mg capsule 30 mg PO BEDTIME PRN (Reason: Insomnia) 0RF diazepam 10 mg tablet 20 mg PO BEDTIME PRN (Reason: Insomnia) 0RF pseudoephedrine HCl 30 mg tablet 30 mg PO Q4H PRN (Reason: Congestion) 0RF clonidine HCl 0.3 mg tablet 0.3 mg PO BEDTIME 0RF pantoprazole 40 mg tablet,delayed release (DR/EC) 40 mg PO BID 0RF mirtazapine 30 mg tablet 30 mg PO BEDTIME 0RF ergocalciferol (vitamin D2) 1,250 mcg (50,000 unit) capsule 1,250 mcg PO Q7D 0RF Rx Instructions: ON THURSDAYS phenazopyridine 100 mg tablet 100 mg PO TID 0RF ciprofloxacin HCl [Cipro] 500 mg tablet 500 mg PO BID Qty: 14 0RF Discharge Orders: Discharge ED (Routine); Ordered 03/25/22 Ordered By: Jeromy Brown Referrals: Rach Barr DO [Primary Care Provider] - Discharge Diet: Clear Liquid Discharge Activity: Increase activity as tolerated Patient Instructions: Abdominal Pain (ED), Opioid Safety Activity Restrictions/Additional Instructions: Follow-up with your surgeon for further treatment and evaluation as needed. Stay on a clear liquid diet until pain resolves. You can then increase to a full liquid and bland diet. Return to ER for fever greater than 100.4, vomiting of blood or blood in stool, or uncontrolled pain. 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
[2022-03-24 22:57] VITALS: BP 108/85; PULSE 130; RESP 22; O2SAT 99
[2022-03-24 23:27] VITALS: RESP 17
[2022-03-24] MEDS: ondansetron 2 mg/ML SDV 2 mL 4 MG IVP (23:27)
[2022-03-24] MEDS: morphine 4 mg/mL SDV 1 mL IVP (23:27)
[2022-03-24] MEDS: sodium chloride 0.9% 1,000 ML 999 ML IV (23:27)
[2022-03-24 23:28] LABS: Basophils # 0.1 10^3/uL (0.0-0.1); Basophils % 0.3 %; Eosinophils % 0.1 %; Hematocrit 40.7 % (37.0-47.0); Hemoglobin 14.4 g/dL (11.5-15.3); Lymphocytes # 2.1 10^3/uL (0.8-4.8); Lymphocytes % 10.8 %; Mean Corpuscular HGB Conc 35.4 g/dL (30.0-36.0); Mean Corpuscular Hemoglobin 30.9 pg (28.0-34.0); Mean Corpuscular Volume 87.3 fl (81-99); Mean Platelet Volume 11.1 fL (7.4-10.4); Monocytes # 0.9 10^3/uL (0.2-0.9); Monocytes % 4.4 %; Neutrophils # 16.58 10^3/uL (1.8-7.7); Neutrophils % 83.7 %; Nucleated Red Blood Cells % 0 %; Platelet Count 257 10^3/cmm (130-400); Red Blood Count 4.66 10^6/uL (4.1-5.3); White Blood Count 19.8 10^3/uL (4.0-10.0)
[2022-03-24 23:48] LABS: Troponin T (5th) Once 63 ng/L (0-10)
[2022-03-24 23:49] LABS: Alanine Aminotransferase 15 U/L (0-33); Albumin Level 4.6 g/dL (3.5-5.2); Alkaline Phosphatase 154 IU/L (35-105); Aspartate Amino Transferase 25 U/L (0-32); Blood Urea Nitrogen 27 mg/dL (8-23); Calcium 10.1 mg/dL (8.5-10.5); Carbon Dioxide 20 mmol/L (22-29); Chloride 96 mmol/L (98-107); Globulin 3.9 g/dL (1.3-4.6); Glomerular Filtration Rate 45.8 mL/min (90-130); Glucose 134 mg/dL (65-115); Lipase 48 U/L (13-60); Osmolality Calculated 285 mOsm/kg (285-295); Sodium 134 mmol/L (136-145); Total Bilirubin 0.7 mg/dL (0.15-1.2); Total Protein 8.5 g/dL (6.6-8.7)
[2022-03-24 23:55] LABS: Anion Gap 22.7 (5-19); Potassium 4.7 mmol/L (3.5-5.1)
[2022-03-24 23:57] VITALS: BP 135/98; PULSE 121; RESP 18; O2SAT 98
[2022-03-25 00:21] VITALS: RESP 20; O2SAT 97
[2022-03-25] MEDS: HYDROmorphone 1 mg/mL INJ 1 mL IVP (00:21)
[2022-03-25] MEDS: haloperidol inj 5 mg/mL INJ 1 mL IVP (00:21)
[2022-03-25 00:30] VITALS: BP 136/72; PULSE 112; RESP 18; O2SAT 98
[2022-03-25] MEDS: sodium chloride 0.9% 1,000 ML 999 ML IV (00:42)
[2022-03-25 01:00] VITALS: BP 106/90; PULSE 97; RESP 18; O2SAT 97
[2022-03-25 01:04] LABS: Troponin 5 2HR 43.96 ng/L (0-10)
[2022-03-25 01:30] VITALS: BP 126/82; PULSE 95; RESP 18; O2SAT 98
--- NOTE | 2022-03-25 01:32 | ECG_ITS ---
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 Measurements Intervals Simpson Rate: 111 P: 64 GA: 115 QRS: 57 QRSD: 77 T: 50 QT: 307 QTc: 418 Interpretive Statements SINUS TACHYCARDIA WITH SHORT GA INTERVAL POSSIBLE LEFT ATRIAL ENLARGEMENT [-0.1mV P-WAVE IN V1/V2] NONSPECIFIC ST & T-WAVE ABNORMALITY ABNORMAL RHYTHM ECG Compared to ECG 08/18/2021 16:17:00 Short GA interval now present T-wave abnormality still present Electronically Signed On 03-25-2022 20:09:49 CDT by Florina Brunson M.D. [email or web address]
[2022-03-25 01:44] LABS: Add Urine Microscopic? YES; Bilirubin Urine Neg (Negative); Blood Urine Neg (Negative); Glucose Urine UA Norm (Normal); Ketones Urine 1+ (Negative); Leukocyte Esterase Urine Trace (Negative); Nitrate Urine Negative (Negative); Protein Urine Neg (Negative); Urine Appearance Clear (CLEAR); Urine Color Yellow (Yellow); Urobilinogen Urine Norm (Negative); pH Urine 6 (5-7)
[2022-03-25 01:47] LABS: Bacteria Urine TRACE /hpf; Mucus Urine 2+ /hpf; RBC Urine 0-4 /hpf (0-2); Squamous Epithelial Cell Urine 15-25 /hpf (0-5)
[2022-03-25 01:48] LABS: Add Urine Culture? No
[2022-03-25 02:30] VITALS: BP 145/77; PULSE 96; RESP 14; O2SAT 100
[2022-03-25 02:44] VITALS: BP 145/77; PULSE 96; RESP 14; O2SAT 100
--- NOTE | 2022-04-01 07:36 | DCPLANNER ---
Addendum entered by Nicki Alarcon 04/21/22 14:01: data architect manager had the following message regarding follow up appointment: Multiple attempts to reach patient will be mailing out letter 04/04/22 On 04/03/22 @ 11:07 Mary Acevedo Wrote To Solid Waste Technician Front Off unable to reach patient to leave message?04/03/22 On 04/01/22 @ 10:59 Mary Acevedo Wrote To Solid Waste Technician Front Off unable to reach patient to leave message 04/01 Original Note: data architect manager had message to schedule a follow up appointment for patient with general surgery. data architect manager sent patients information to the front office staff at general surgery. Patients information will be printed and reviewed. Clinic will call patient with appointment information.
== END 2022-03-25 02:46 | disposition home or self-care (01) ==
PROVIDERS: Emergency Provider Nurse Practitioner Family; PCP Family Medicine
DX: K56.7 Ileus, unspecified (principal); R10.84 Generalized abdominal pain; Z86.711 Personal history of pulmonary embolism
CPT/HCPCS: 74176; 80053; 81001; 83690; 84484; 85025; 93005; 96361; 96374; 96375; 99285; J1170; J1630; J2270; J2405; J7030

== ENCOUNTER 2022-07-29 04:35 | Emergency (ER) | payer OTHER, MEDICARE, SELFPAY ==
[2022-07-29 04:37] VITALS: BP 162/68; PULSE 83; RESP 16; TEMP 36.1; O2SAT 96
[2022-07-29 04:39] VITALS: BP 170/89; PULSE 85; RESP 16; O2SAT 96
--- NOTE | 2022-07-29 04:46 | CTR_ITS ---
PROCEDURE INFORMATION: Exam: CT Abdomen And Pelvis With Contrast Exam date and time: 07/29/2022 5:43 AM Age: 62 years old Clinical indication: Nausea and vomiting; Abdominal pain; Generalized; Prior surgery; Surgery type: Appy. Hysterectomy. Partial small bowel resection. Adhesionolysis. Patient HX: C/O severe abd pain with n/v. History of recurrent sbo. TECHNIQUE: Imaging protocol: Computed tomography of the abdomen and pelvis with contrast. Radiation optimization: All CT scans at this facility use at least one of these dose optimization techniques: automated exposure control; mA and/or kV adjustment per patient size (includes targeted exams where dose is matched to clinical indication); or iterative reconstruction. Contrast material: OMNI 350; Contrast volume: 90 ml; Contrast route: INTRAVENOUS (IV); COMPARISON: CT abdomen pelvis wo con [id number] 03/24/2022 11:51 PM RADIATION DOSE METRICS: Total DLP (mGy-cm): 318.73 FINDINGS: Liver: Normal. No mass. Gallbladder and bile ducts: Stable cholecystectomy. Pancreas: Normal. No ductal dilation. Spleen: Normal. No splenomegaly. Adrenal glands: Normal. No mass. Kidneys and ureters: Normal. No hydronephrosis. Stomach and bowel: Stable midline bowel anastomosis consistent with previous partial bowel resection. Stable partial right colectomy. Moderate retained feces throughout the colon. Appendix: No evidence of appendicitis. Intraperitoneal space: Unremarkable. No free air. No significant fluid collection. Vasculature: Calcification of the abdominal aorta and/or iliac arteries consistent with atherosclerotic vessel disease. Lymph nodes: Unremarkable. No enlarged lymph nodes. Urinary bladder: Unremarkable as visualized. Reproductive: Stable hysterectomy. Bones/joints: Unremarkable. No acute fracture. Soft tissues: Unremarkable. CT/CT abdomen pelvis w con* [id number] IMPRESSION: Moderate retained feces throughout the colon.
--- NOTE | 2022-07-29 04:48 | W.ED.ABDPA2 ---
Documented by User: Zoraida Hollis MD 07/29/22 04:50 HPI - Abdominal Pain General: Chief Complaint: Abdominal Pain Stated Complaint: N/V, abd pain Time Seen by Provider: 07/29/22 04:37 Source: patient Mode of arrival: ambulatory Limitations: no limitations History of Present Illness: 62-year-old female who has had multiple abdominal surgeries in the past states that starting this morning started having severe diffuse abdominal pain with vomiting. She states she has had multiple small bowel obstructions and has had surgeries for adhesions states her pain is diffuse rates it a 9 out of 10 she denies any fever denies any diarrhea denies any worsening improving factors. Associated Symptoms: Reports nausea and vomiting; Denies chills, dysuria and fever(s) Review of Systems Const: Denies: fever(s), chills, body aches or change in appetite Eyes: Denies: blurry vision or eye discomfort ENMT: Denies: throat pain or dental pain Card: Denies: chest pain Resp: Denies: dyspnea GI: Reports: abdominal pain, nausea and vomiting : Denies: dysuria Musc: Denies: neck pain or back pain Skin/Breast: Denies: rash Neuro: Denies: headache(s) Psych: Denies: depression Parmjit/Lymph: Denies: easy bruising All/Imm: Denies: urticaria PFSH ED PFSH: Medical History Abdominal pain Anxiety and depression Chronic abdominal pain Constipation Cystitis History of pulmonary embolism Insomnia Intractable nausea and vomiting Migraine headache Personal history of DVT (deep vein thrombosis) Recurrent UTI UTI (urinary tract infection) Surgical History History of appendectomy History of hysterectomy History of laparoscopy Multiple surgeries for adhesionolysis, history of partial small bowel resection History of removal of ovarian cyst Family History Father , AT AGE 92 No problems noted. Mother Hypertension Other Diabetes Social History Smoking and tobacco status: never smoked Alcohol intake: never Marital status: Current occupational status: disabled History of recent travel: No Physical Exam Const: COMMON NORMALS: no acute distress, patient oriented x3 and healthy appearing HENMT: COMMON NORMALS: normocephalic and atraumatic HEAD & SCALP: normocephalic and atraumatic Eye: COMMON NORMALS: Equal, round and reactive pupils present and EOMs intact bilaterally PUPIL: Yes Equal, round and reactive pupils present Neck/C-Spine: COMMON NORMALS: full ROM and supple Chest: COMMONS NORMALS: normal inspection of the chest and normal palpation of entire chest wall Resp: COMMON NORMALS: normal respiratory effort, No retractions, No use of accessory muscles and clear to auscultation bilaterally AUSCULTATION: clear to auscultation bilaterally Cardio: COMMON NORMALS: regular rate, regular rhythm and No murmurs present (Cardio) RATE: regular rate RHYTHM: regular rhythm GI: COMMON NORMALS: Normal to inspection, nondistended, normoactive bowel sounds present, Soft to palpation and no masses PALPATION: Yes Soft to palpation OTHER: Diffuse tenderness Extremity: COMMON NORMALS: normal to inspection and full ROM Neuro: COMMON NORMALS: patient oriented x3, moves all extremities and no focal motor deficits Psych: COMMON NORMALS: mental status grossly normal, Normal thought process present and cooperative THOUGHT PROCESS: Normal thought process present Skin: COMMON NORMALS: no rashes or lesions noted and no wounds GENERAL SKIN EXAM: no rashes or lesions noted Course Vital Signs: Vital signs: Vital Signs Temperature 97.0 F L 07/29/22 04:37 Pulse Rate 85 07/29/22 04:39 Respiratory Rate 20 H 07/29/22 06:23 Blood Pressure 170/89 07/29/22 04:39 Pulse Oximetry 98 07/29/22 06:23 MDM - Abdominal Pain Lab Data : 07/29/22 04:50 07/29/22 04:50 Labs/Radiology: Radiology Impressions Abdomen/Pelvis CT 07/29/22 04:46 IMPRESSION: Moderate retained feces throughout the colon. Laboratory Results WBC 12.1 10^3/uL (4.0-10.0) H 07/29/22 04:50 RBC 4.20 10^6/uL (4.1-5.3) 07/29/22 04:50 Hgb 13.5 g/dL (11.5-15.3) 07/29/22 04:50 Hct 39.5 % (37.0-47.0) 07/29/22 04:50 MCV 94.0 fl (81-99) 07/29/22 04:50 MCH 32.1 pg (28.0-34.0) 07/29/22 04:50 MCHC 34.2 g/dL (30.0-36.0) 07/29/22 04:50 RDW 12.2 % (12.1-15.1) 07/29/22 04:50 Plt Count 248 10^3/cmm (130-400) 07/29/22 04:50 MPV 10.4 fL (7.4-10.4) 07/29/22 04:50 Neut % (Auto) 86.7 % 07/29/22 04:50 Lymph % (Auto) 10.2 % 07/29/22 04:50 [place] % (Auto) 2.5 % 07/29/22 04:50 Eos % (Auto) 0.0 % 07/29/22 04:50 Baso % (Auto) 0.2 % 07/29/22 04:50 Neut # (Auto) 10.44 10^3/uL (1.8-7.7) H 07/29/22 04:50 Lymph # (Auto) 1.2 10^3/uL (0.8-4.8) 07/29/22 04:50 [place] # (Auto) 0.3 10^3/uL (0.2-0.9) 07/29/22 04:50 Eos # (Auto) 0.0 10^3/uL (0.0-0.8) 07/29/22 04:50 Baso # (Auto) 0.0 10^3/uL (0.0-0.1) 07/29/22 04:50 Nucleated RBC % (auto) 0 % 07/29/22 04:50 Nucleated RBCs # 0.0 /100WBC 07/29/22 04:50 Sodium 140 mmol/L (136-145) 07/29/22 04:50 Potassium 4.2 mmol/L (3.5-5.1) 07/29/22 04:50 Chloride 100 mmol/L (98-107) 07/29/22 04:50 Carbon Dioxide 23 mmol/L (22-29) 07/29/22 04:50 Anion Gap 21.2 (5-19) H 07/29/22 04:50 BUN 18 mg/dL (8-23) 07/29/22 04:50 Creatinine 0.6 mg/dL (0.5-0.9) 07/29/22 04:50 GFR Calculation 102.0 mL/min (90-130) 07/29/22 04:50 Glucose 207 mg/dL (65-115) H 07/29/22 04:50 Calculated Osmolality 298 mOsm/kg (285-295) H 07/29/22 04:50 Lactic Acid 3.3 mmol/L (0.5-2.2) H 07/29/22 07:07 Lactate 5.3 mmol/L (0.5-2.2) H* 07/29/22 04:50 Calcium 9.6 mg/dL (8.5-10.5) 07/29/22 04:50 Total Bilirubin 0.5 mg/dL (0.15-1.2) 07/29/22 04:50 AST 21 U/L (0-32) 07/29/22 04:50 ALT 15 U/L (0-33) 07/29/22 04:50 Alkaline Phosphatase 94 U/L (35-105) 07/29/22 04:50 Total Protein 8.0 g/dL (6.6-8.7) 07/29/22 04:50 Albumin 4.8 g/dL (3.5-5.2) 07/29/22 04:50 Globulin 3.2 g/dL (1.3-4.6) 07/29/22 04:50 Lipase 58 U/L (13-60) 07/29/22 04:50 Urine Color Colorless (Yellow) 07/29/22 06:10 Urine Appearance Clear (CLEAR) 07/29/22 06:10 Urine pH 7 (5-7) 07/29/22 06:10 Ur Specific [place] 1.000 (1.005-1.030) L 07/29/22 06:10 Urine Protein Trace (Negative) 07/29/22 06:10 Urine Glucose (UA) Norm (Normal) 07/29/22 06:10 Urine Ketones Negative (Negative) 07/29/22 06:10 Urine Blood Neg (Negative) 07/29/22 06:10 Urine Nitrate Negative (Negative) 07/29/22 06:10 Urine Bilirubin Neg (Negative) 07/29/22 06:10 Urine Urobilinogen Norm mg/dL (Negative) 07/29/22 06:10 Ur Leukocyte Esterase Negative (Negative) 07/29/22 06:10 Urine RBC 0-4 /hpf (0-2) H 07/29/22 06:10 Urine WBC Rare /hpf (0-5) 07/29/22 06:10 Ur Squamous Epith Cells Rare /hpf (0-5) 07/29/22 06:10 Amorphous Sediment Not Reportable 07/29/22 06:10 Urine Bacteria None /hpf (NONE) 07/29/22 06:10 Discharge Plan Discharge Patient Disposition: Home Clinical Impression: Constipation, Chronic abdominal pain Condition: Stable Prescriptions: New Constulose 10 gram/15 mL solution 20 g PO Q2H 1 Days Qty: 360 0RF Rx Instructions: until desired laxative effect No Action morphine 20 mg/5 mL (4 mg/mL) solution 40 mg PO Q4H MDD SEE PHARMACY COMMENT MAX 60 ML PRN (Reason: Pain) temazepam 30 mg capsule 30 mg PO BEDTIME PRN (Reason: Insomnia) diazepam 10 mg tablet 20 mg PO BEDTIME PRN (Reason: Insomnia) pseudoephedrine HCl 30 mg tablet 30 mg PO Q4H PRN (Reason: Congestion) clonidine HCl 0.3 mg tablet 0.3 mg PO BEDTIME pantoprazole 40 mg tablet,delayed release (DR/EC) 40 mg PO BID mirtazapine 30 mg tablet 30 mg PO BEDTIME ergocalciferol (vitamin D2) 1,250 mcg (50,000 unit) capsule 1,250 mcg PO Q7D Rx Instructions: ON THURSDAYS phenazopyridine 100 mg tablet 100 mg PO TID ciprofloxacin HCl [Cipro] 500 mg tablet 500 mg PO BID Qty: 14 0RF ondansetron 4 mg tablet,disintegrating 4 mg PO Q6H PRN (Reason: nausea and vomiting) Qty: 14 0RF Discharge Orders: Discharge ED (Routine); Ordered 07/29/22 Ordered By: Nick Pritchett Referrals: Rach Barr DO [Primary Care Provider] - Discharge Diet: Clear Liquid Discharge Activity: Increase activity as tolerated Patient Instructions: Abdominal Pain (ED), Opioid Safety, Pain Management Activity Restrictions/Additional Instructions: Increase your MiraLAX to 1 capful twice a day. Use the lactulose 30 mL (20 mg) every 2 hours until adequate results achieved. Follow-up with your primary care doctor or the pain clinic. Sign Out Sign Out Data: Patient Sign Out occurred on 07/29/22 at 06:12. Patient's care was discussed, and care was transferred from to Nick Pritchett DO. Coding Level of Care Code ED [facility] for [facility] Fwd Exam Comprehensive Documented by User: Nick Pritchett DO 07/29/22 07:59 HPI - Abdominal Pain General: Chief Complaint: Abdominal Pain Stated Complaint: N/V, abd pain Time Seen by Provider: 07/29/22 04:37 PFSH ED PFSH: Medical History Abdominal pain Anxiety and depression Chronic abdominal pain Constipation Cystitis History of pulmonary embolism Insomnia Intractable nausea and vomiting Migraine headache Personal history of DVT (deep vein thrombosis) Recurrent UTI UTI (urinary tract infection) Surgical History History of appendectomy History of hysterectomy History of laparoscopy Multiple surgeries for adhesionolysis, history of partial small bowel resection History of removal of ovarian cyst Family History Father , AT AGE 92 No problems noted. Mother Hypertension Other Diabetes Social History Smoking and tobacco status: never smoked Alcohol intake: never Marital status: Current occupational status: disabled History of recent travel: No Course Vital Signs: Vital signs: Vital Signs Temperature 97.0 F L 07/29/22 04:37 Pulse Rate 85 07/29/22 04:39 Respiratory Rate 20 H 07/29/22 06:23 Blood Pressure 170/89 07/29/22 04:39 Pulse Oximetry 98 07/29/22 06:23 MDM - Abdominal Pain Medical Decision Making Care assumed at change of shift. Lactic acid is trending down with fluid rehydration overall patient is doing better. She still complaining of abdominal discomfort reviewed the findings with her. Think she is somewhat volume depleted we did replace significant mount of fluid for her especially given her body. Her CT does not show anything acute on the abdomen or pelvis other than some moderate constipation. Increase her MiraLAX to twice daily use lactulose 20 mg every 2 hours until adequate results achieved. Differential Diagnosis Likely abdominal pain, acute appendicitis, calculus of kidney, constipation, diverticulitis, endometriosis, gastroenteritis, pancreatitis and small bowel obstruction Medical Records I reviewed the patient's medical records. Lab Data I reviewed the patient's lab results. : 07/29/22 04:50 07/29/22 04:50 Labs/Radiology: Radiology Impressions Abdomen/Pelvis CT 07/29/22 04:46
[2022-07-29 04:55] VITALS: RESP 20; O2SAT 98
[2022-07-29] MEDS: ondansetron 2 mg/ML SDV 2 mL 4 MG IVP (04:55)
[2022-07-29] MEDS: HYDROmorphone 1 mg/mL INJ 1 mL 0.5 MG IVP (04:55)
[2022-07-29] MEDS: sodium chloride 0.9% 1,000 ML 999 ML IV ×2 (04:56→07:09)
[2022-07-29 05:03] LABS: Basophils % 0.2 %; Hematocrit 39.5 % (37.0-47.0); Hemoglobin 13.5 g/dL (11.5-15.3); Lymphocytes # 1.2 10^3/uL (0.8-4.8); Lymphocytes % 10.2 %; Mean Corpuscular HGB Conc 34.2 g/dL (30.0-36.0); Mean Corpuscular Hemoglobin 32.1 pg (28.0-34.0); Mean Platelet Volume 10.4 fL (7.4-10.4); Monocytes # 0.3 10^3/uL (0.2-0.9); Monocytes % 2.5 %; Neutrophils # 10.44 10^3/uL (1.8-7.7); Neutrophils % 86.7 %; Nucleated Red Blood Cells % 0 %; Platelet Count 248 10^3/cmm (130-400); Red Cell Distribution Width 12.2 % (12.1-15.1); White Blood Count 12.1 10^3/uL (4.0-10.0)
[2022-07-29 05:38] LABS: Alanine Aminotransferase 15 U/L (0-33); Albumin Level 4.8 g/dL (3.5-5.2); Alkaline Phosphatase 94 U/L (35-105); Anion Gap 21.2 (5-19); Aspartate Amino Transferase 21 U/L (0-32); Blood Urea Nitrogen 18 mg/dL (8-23); Calcium 9.6 mg/dL (8.5-10.5); Carbon Dioxide 23 mmol/L (22-29); Chloride 100 mmol/L (98-107); Globulin 3.2 g/dL (1.3-4.6); Glucose 207 mg/dL (65-115); Lipase 58 U/L (13-60); Osmolality Calculated 298 mOsm/kg (285-295); Potassium 4.2 mmol/L (3.5-5.1); Sodium 140 mmol/L (136-145); Total Bilirubin 0.5 mg/dL (0.15-1.2)
[2022-07-29 05:45] LABS: Lactate (Lactic Acid level) 5.3 mmol/L (0.5-2.2)
[2022-07-29] MEDS: iohexol 350 mg/mL 500 mL Btl (per mL) IV (05:46)
[2022-07-29 06:23] VITALS: RESP 20; O2SAT 98
[2022-07-29] MEDS: morphine 4 mg/mL SDV 1 mL IVP (06:23)
[2022-07-29 06:32] LABS: Blood Urine Neg (Negative); Glucose Urine UA Norm (Normal); Ketones Urine Negative (Negative); Protein Urine Trace (Negative); Urine Appearance Clear (CLEAR); Urine Color Colorless (Yellow); pH Urine 7 (5-7)
[2022-07-29 06:33] LABS: Add Urine Microscopic? YES; Bilirubin Urine Neg (Negative); Leukocyte Esterase Urine Negative (Negative); Nitrate Urine Negative (Negative); RBC Urine 0-4 /hpf (0-2); Urobilinogen Urine Norm (Negative); WBC Urine RARE /hpf (0-5)
[2022-07-29 06:34] LABS: Add Urine Culture? No; Squamous Epithelial Cell Urine RARE /hpf (0-5)
[2022-07-29 07:34] LABS: Lactic Sepsis W/Reflex 3.3 mmol/L (0.5-2.2)
[2022-07-29 08:58] LABS: Reflex Lactate Order REFLEX LACTIC ORDERD
== END 2022-07-29 07:57 | disposition home or self-care (01) ==
PROVIDERS: Emergency Medicine; Emergency Provider Family Medicine; PCP Family Medicine
DX: K59.00 Constipation, unspecified (principal); G89.29 Other chronic pain; R10.9 Unspecified abdominal pain; Z86.711 Personal history of pulmonary embolism
CPT/HCPCS: 36600; 51798; 74176; 74177; 80051; 80053; 81001; 82330; 82805; 83605; 83690; 85025; 93005; 96361; 96374; 96375; 96376; 99285; J1170; J1630; J2250; J2270; J2405; J3490; J7030; Q9967

== ENCOUNTER 2022-07-29 14:54 | Emergency (ER) | payer MEDICARE, OTHER, SELFPAY ==
[2022-07-29 15:00] VITALS: BP 156/83; PULSE 103; RESP 16; TEMP 37.2; O2SAT 100; BMI 17.6
--- NOTE | 2022-07-29 16:30 | ED_ITS ---
HPI - Abdominal Pain General: Chief Complaint: Abdominal Pain Stated Complaint: abd pain Time Seen by Provider: 07/29/22 15:57 Source: patient Mode of arrival: ambulatory History of Present Illness: 62-year-old female who is seen earlier this morning and picked up her care at change of shift and we are waiting on a CT report. CT came back no acute findings other than significant constipation. Her white count was 12,000 her lactate was 5.3 she was given fluids and on repeat lactate at 3.3 was trending down. Patient was discharged home with lactulose to use every 2 hours till adequate results were achieved. Discussed with her that some of her medications on her list including morphine and pseudoephedrine would probably contribute to her slow bowel transit. She states she not been taking any of the pseudoephedrine for some time. She has not had any fever. When I first came in the room she is hyperventilating. She denies any dysuria urgency or frequency states she did have a large solid stool no hematochezia or melena. MD elicited complaint: abdominal pain Pertinent past history: constipation Onset (ago): day(s) Location: Diffuse Severity: moderate Quality: cramping Radiation: none Exacerbating factors: nothing Relieving factors: nothing Associated Symptoms: Reports bloating, constipation, GI cramping, nausea and poor appetite; Denies anorexia, belching, change in bowel habits, change in stool character, chills, coffee ground emesis, diarrhea, dyspepsia, dysuria, excessive flatus, fever(s), heartburn, hematochezia, hematuria, hematemesis, fecal incontinence, loose stools, melena, syncope and vomiting Review of Systems Const: Denies: fever(s), chills, fatigue or malaise ENMT: Denies: throat pain, ear or mastoid pain, nasal discharge or nasal congestion Card: Denies: chest pain or syncope Resp: Denies: dyspnea, productive cough or non-productive cough GI: Reports: abdominal pain, nausea, constipation, bloating and GI cramping; Denies: vomiting, hematemesis, coffee ground emesis, heartburn, diarrhea, belching, excessive flatus, fecal incontinence, change in bowel habits, change in stool character, hematochezia or melena : Denies: dysuria or hematuria Skin/Breast: Denies: rash or pruritus PFSH ED PFSH: Medical History Abdominal pain Anxiety and depression Chronic abdominal pain Constipation Cystitis History of pulmonary embolism Insomnia Intractable nausea and vomiting Migraine headache Personal history of DVT (deep vein thrombosis) Recurrent UTI UTI (urinary tract infection) Surgical History History of appendectomy History of hysterectomy History of laparoscopy Multiple surgeries for adhesionolysis, history of partial small bowel resection History of removal of ovarian cyst Family History Father , AT AGE 92 No problems noted. Mother Hypertension Other Diabetes Social History Smoking and tobacco status: never smoked Alcohol intake: never Marital status: Current occupational status: disabled History of recent travel: No Physical Exam Const: GENERAL APPEARANCE: cooperative ORIENTATION/CONSCIOUSNESS: Yes awake, Yes oriented to person, Yes oriented to place and Yes oriented to time HENMT: COMMON NORMALS: normocephalic, atraumatic and hearing grossly normal bi laterally HEAD & SCALP: normocephalic and atraumatic Resp: COMMON NORMALS: normal respiratory effort, No retractions, No use of accessory muscles and clear to auscultation bilaterally AUSCULTATION: clear to auscultation bilaterally Cardio: COMMON NORMALS: regular rate, regular rhythm and No murmurs present (Cardio) RATE: regular rate RHYTHM: regular rhythm GI: COMMON NORMALS: Soft to palpation and No hepatosplenomegaly present AUSCULTATION: Yes normoactive bowel sounds PALPATION: Yes Soft to palpation, No Tenderness to palpation present (GI), No Guarding due to palpation present (GI) and Yes No hepatosplenomegaly present Extremity: COMMON NORMALS: normal to inspection, capillary refill normal, no clubbing, cyanosis or edema, no calf tenderness and no pedal edema Neuro: SENSORIUM/ORIENTATION: Yes oriented to person, Yes oriented to place and Yes oriented to time Skin: COMMON NORMALS: no rashes or lesions noted GENERAL SKIN EXAM: no rashes or lesions noted Course Vital Signs: Vital signs: Vital Signs Temperature 99.0 F 07/29/22 15:00 Pulse Rate 96 07/29/22 18:01 Respiratory Rate 21 H 07/29/22 18:01 Blood Pressure 163/88 07/29/22 18:01 Pulse Oximetry 100 07/29/22 18:01 Oxygen Delivery Me thod 07/29/22 18:01 MDM - Abdominal Pain Medical Decision Making Labs from patient's previous visit reviewed as well as this afternoon. CT earlier today was reviewed as well. Did not show anything acute showed constipation. Patient did states she got lactulose down and had good results from it but still felt she had more to go. When I first reviewed the CT I thought it looked like she had quite a bit of urine in her bladder and wondered if maybe she was having a distended bladder because she was getting bladder outlet obstruction from the degree of constipation she had. We had her void and then do a bladder scan showing 155 mL. See the repeat CT was done at the family's insistence because she they thought something had been missed. They were very concerned there is something else underlying. We did repeat the CT does not show anything else that is acute. Her abdominal exam did not show any signs of acute peritonitis she complained mostly of suprapubic pain which had led me to believe there was may be some issue with urinary retention over the bladder to scan disproved that. I think she is continue to have abdominal cramping due to her significant constipation probably worsened by the intake of the laxative which increased bowel activity. She did not have any vomiting while she was in the emergency room. She did spit up some saliva into a basin but the basin did not have any vomit and it that I witnessed. She was hyperventilating both initially when she presented and when I went back to discuss her results reviewed the blood gas finding with the family. Family question about admitting her. At this point she is having some anxiety which I think is due to her discomfort from the abdominal cramping. I do not doubt that this is significant and we have talked about it with her earlier when she was here this morning. However her anion gap is improved this morning she had a little bit of a lactic acidosis which improved after fluids. She has no acute finding at this time and there is nothing we would do as an admission there is no evidence of obstipation there is no fecalization of stool in the small bowel there is no evidence of bowel obstruction. Her anion gap is actually better than it was this morning her white count is upper end of normal but is not c orrelating with any other signs of infection at this time with a normal CT would not be an indication for admission. We will discharge the patient home did give her some Haldol prior to leaving to help with nausea because she goes several different allergies. In fact reviewing her medication list it appears as if from 1 point she was given Haldol as an antiemetic in the past. We will have her use ondansetron oral disintegrating tablets at home I recommend that she may be 1 or 2 more dose of lactulose at most tonight and then try again tomorrow where she may have difficulty with abdominal cramping through the night if she takes several more doses of the lactulose this evening. Also recommend again that she increase her MiraLAX to 1 capful twice a day to prevent ongoing constipation problems because she is continuing to be on her narcotics. Also important that she follow-up with her primary care doctor and pain clinic to look at a better bowel regimen to prevent recurrence of these problems. Medical Records I reviewed the patient's medical records. Lab Data I reviewed the patient's lab results. : 07/29/22 16:54 07/29/22 16:54 Labs/Radiology: Radiology Impressions Abdomen/Pelvis CT 07/29/22 16:30 IMPRESSION: No acute finding. Laboratory Results WBC 12.9 10^3/uL (4.0-10.0) H 07/29/22 16:54 RBC 4.12 10^6/uL (4.1-5.3) 07/29/22 16:54 Hgb 13.0 g/dL (11.5-15.3) 07/29/22 16:54 Hct 38.2 % (37.0-47.0) 07/29/22 16:54 MCV 92.7 fl (81-99) 07/29/22 16:54 MCH 31.6 pg (28.0-34.0) 07/29/22 16:54 MCHC 34.0 g/dL (30.0-36.0) 07/29/22 16:54 RDW 12.3 % (12.1-15.1) 07/29/22 16:54 Plt Count 257 10^3/cmm (130-400) 07/29/22 16:54 MPV 10.8 fL (7.4-10.4) H 07/29/22 16:54 Neut % (Auto) 79.6 % 07/29/22 16:54 Lymph % (Auto) 14.7 % 07/29/22 16:54 [place] % (Auto) 5.0 % 07/29/22 16:54 Eos % (Auto) 0.0 % 07/29/22 16:54 Baso % (Auto) 0.2 % 07/29/22 16:54 Neut # (Auto) 10.29 10^3/uL (1.8-7.7) H 07/29/22 16:54 Lymph # (Auto) 1.9 10^3/uL (0.8-4.8) 07/29/22 16:54 [place] # (Auto) 0.6 10^3/uL (0.2-0.9) 07/29/22 16:54 Eos # (Auto) 0.0 10^3/uL (0.0-0.8) 07/29/22 16:54 Baso # (Auto) 0.0 10^3/uL (0.0-0.1) 07/29/22 16:54 Nucleated RBC % (auto) 0 % 07/29/22 16:54 Nucleated RBCs # 0.0 /100WBC 07/29/22 16:54 Specimen Type Arterial 07/29/22 16:53 Sample Site Radial, left 07/29/22 16:53 ABG pH 7.57 (7.35-7.45) H* 07/29/22 16:53 ABG pCO2 22.3 mmHg (35-45) L 07/29/22 16:53 ABG pO2 92.3 mmHg (80.0-100.0) 07/29/22 16:53 ABG HCO3 20.3 mmol/L (22-26) L 07/29/22 16:53 ABG O2 Saturation 97.8 07/29/22 16:53 ABG Base Excess -0.2 mmol/L (-2.0-2.0) 07/29/22 16:53 Jaya Test Pos 07/29/22 16:53 A-a O2 Gradient 3.7 mmHg (5-10) L 07/29/22 16:53 Hematocrit 37.1 % (37-47) 07/29/22 16:53 Hgb O2 Saturation 96.7 % (95-100) 07/29/22 16:53 Carboxyhemoglobin 0.3 %THgb (0.4-20.1) L 07/29/22 16:53 Methemoglobin 0.8 % (0.4-1.5) 07/29/22 16:53 Total Hemoglobin 12.1 g/dL (12-16) 07/29/22 16:53 Sodium 143.0 mmol/L (131-143) 07/29/22 16:53 Potassium 3.4 mmol/L (3.5-5.0) L 07/29/22 16:53 Glucose 130.0 mg/dL (70-115) H 07/29/22 16:53 Ionized Calcium 1.1 mmol/L (1.1-1.4) 07/29/22 16:53 O2 Delivery Device Room air 07/29/22 16:53 Produce Specialist ID [id number] 07/29/22 16:53 Sodium 143 mmol/L (136-145) 07/29/22 16:54 Potassium 3.6 mmol/L (3.5-5.1) 07/29/22 16:54 Chloride 104 mmol/L (98-107) 07/29/22 16:54 Carbon Dioxide 23 mmol/L (22-29) 07/29/22 16:54 Anion Gap 19.6 (5-19) H 07/29/22 16:54 BUN 13 mg/dL (8-23) 07/29/22 16:54 Creatinine 0.6 mg/dL (0.5-0.9) 07/29/22 16:54 GFR Calculation 102.0 mL/min (90-130) 07/29/22 16:54 Glucose 134 mg/dL (65-115) H 07/29/22 16:54 Calculated Osmolality 298 mOsm/kg (285-295) H 07/29/22 16:54 Calcium 9.8 mg/dL (8.5-10.5) 07/29/22 16:54 Total Bilirubin 0.7 mg/dL (0.15-1.2) 07/29/22 16:54 AST 32 U/L (0-32) 07/29/22 16:54 ALT 15 U/L (0-33) 07/29/22 16:54 Alkaline Phosphatase 85 U/L (35-105) 07/29/22 16:54 Total Protein 7.9 g/dL (6.6-8.7) 07/29/22 16:54 Albumin 4.7 g/dL (3.5-5.2) 07/29/22 16:54 Globulin 3.2 g/dL (1.3-4.6) 07/29/22 16:54 Discharge Plan Discharge Patient Disposition: Home Clinical Impression: Constipation, Chronic abdominal pain Condition: Stable Prescriptions: New ondansetron 4 mg tablet,disintegrating 4 mg PO Q6H PRN (Reason: nausea and vomiting) 5 Days Qty: 20 0RF No Action morphine 20 mg/5 mL (4 mg/mL) solution 40 mg PO Q4H MDD SEE PHARMACY COMMENT MAX 60 ML PRN (Reason: Pain) temazepam 30 mg capsule 30 mg PO BEDTIME PRN (Reason: Insomnia) diazepam 10 mg tablet 20 mg PO BEDTIME PRN (Reason: Insomnia) pseudoephedrine HCl 30 mg tablet 30 mg PO Q4H PRN (Reason: Congestion) clonidine HCl 0.3 mg tablet 0.3 mg PO BEDTIME pantoprazole 40 mg tablet,delayed release (DR/EC) 40 mg PO BID mirtazapine 30 mg tablet 30 mg PO BEDTIME ergocalciferol (vitamin D2) 1,250 mcg (50,000 unit) capsule 1,250 mcg PO Q7D Rx Instructions: ON THURSDAYS phenazopyridine 100 mg tablet 100 mg PO TID ciprofloxacin HCl [Cipro] 500 mg tablet 500 mg PO BID Qty: 14 0RF ondansetron 4 mg tablet,disintegrating 4 mg PO Q6H PRN (Reason: nausea and vomiting) Qty: 14 0RF Constulose 10 gram/15 mL solution 20 g PO Q2H 1 Days Qty: 360 0RF Rx Instructions: until desired laxative effect Discharge Orders: Discharge ED (Routine); Ordered 07/29/22 Ordered By: Nick Pritchett Referrals: Rach Barr DO [Primary Care Provider] - Discharge Diet: Clear Liquid Discharge Activity: Increase activity as tolerated Patient Instructions: Abdominal Pain (ED), Opioid Safety, Pain Management Activity Restrictions/Additional Instructions: Liquid diet for the next 24 to 48 hours. Recommend tonight warm fluids such as coffee or tea and do at most 1-2 more doses of lactulose. You can resume the lactulose tomorrow. Advance diet as tolerated. When she began eating solid foods again increase your MiraLAX to twice daily. You can use the ondansetron every 6 hours as needed for nausea. Follow-up with your doctor within the next 4 to 5 days. Coding Level of Care Code ED Cage Maker for [facility] Fwd Exam Detailed
--- NOTE | 2022-07-29 16:30 | CTR_ITS ---
PROCEDURE INFORMATION: Exam: CT Abdomen And Pelvis Without Contrast Exam date and time: 07/29/2022 5:07 PM Age: 62 years old Clinical indication: Abdominal pain; Colic TECHNIQUE: Imaging protocol: Computed tomography of the abdomen and pelvis without contrast. Radiation optimization: All CT scans at this facility use at least one of these dose optimization techniques: automated exposure control; mA and/or kV adjustment per patient size (includes targeted exams where dose is matched to clinical indication); or iterative reconstruction. COMPARISON: CT abdomen pelvis w con* [id number] 07/29/2022 5:43 AM RADIATION DOSE METRICS: Total DLP (mGy-cm): 325.33 FINDINGS: Limitations: The absence of intravenous contrast lessens the sensitivity of this study for solid organ abnormalities. Contrast material on this examination within the urinary tract is from CT scan done earlier in the day. Liver: There is no focal abnormality within the liver. Liver has slightly nodular contours suggesting possible cirrhosis. Gallbladder and bile ducts: There has been a cholecystectomy. Pancreas: The pancreas is normal. Spleen: The spleen is normal. Adrenal glands: The adrenal glands are normal. Kidneys and ureters: The kidneys are normal. There is no evidence of hydronephrosis. Stomach and bowel: There is no evidence of colitis/diverticulitis. There is no evidence of intestinal obstruction. There are postsurgical changes of partial bowel obstruction not significantly changed. Appendix: Not identified Intraperitoneal space: There is no evidence of free intraperitoneal fluid. Vasculature: The aorta is normal. Lymph nodes: There is no evidence of lymphadenopathy. Urinary bladder: Urinary bladder is grossly normal. Reproductive: There has been a hysterectomy. Bones/joints: The lumbar spine is normal. No acute fracture is demonstrated. Soft tissues: Unremarkable. CT/CT abdomen pelvis wo con [id number] IMPRESSION: No acute finding.
[2022-07-29] MEDS: sodium chloride 0.9% 1,000 ML 999 ML IV (16:55)
[2022-07-29] MEDS: ondansetron 2 mg/ML SDV 2 mL 4 MG IVP (16:55)
[2022-07-29] MEDS: famotidine 20 mg/2 mL INJ 40 MG IVP (16:56)
[2022-07-29 17:09] LABS: ABG PCO2 22.3 mmHg (35-45); Alveolar-Arterial Oxygen Gradi 3.7 mmHg (5-10); Arterial Blood Gas Hematocrit 37.1 % (37-47); Base Excess ABG -0.2 mmol/L (-2.0-2.0); Blood Gas Allen Test Pos; Blood Gas Operator Identificat GD; Blood Gas Sample Site Radial, left; Blood Gas Sample Type Arterial; Carboxyhemoglobin 0.3 %THgb (0.4-20.1); HCO3 ABG 20.3 mmol/L (22-26); HGB O2 Sat 96.7 % (95-100); Ionized Calcium Level - ABG 1.1 mmol/L (1.1-1.4); Methemoglobin 0.8 % (0.4-1.5); Oxygen Device ROOM AIR; Oxygen Saturation ABG 97.8; PO2 ABG 92.3 mmHg (80.0-100.0); Potassium Level - ABG 3.4 mmol/L (3.5-5.0); Total Hemoglobin 12.1 g/dL (12-16)
[2022-07-29 17:10] LABS: Basophils % 0.2 %; Hematocrit 38.2 % (37.0-47.0); Lymphocytes # 1.9 10^3/uL (0.8-4.8); Lymphocytes % 14.7 %; Mean Corpuscular Hemoglobin 31.6 pg (28.0-34.0); Mean Corpuscular Volume 92.7 fl (81-99); Mean Platelet Volume 10.8 fL (7.4-10.4); Monocytes # 0.6 10^3/uL (0.2-0.9); Neutrophils # 10.29 10^3/uL (1.8-7.7); Neutrophils % 79.6 %; Nucleated Red Blood Cells % 0 %; Platelet Count 257 10^3/cmm (130-400); Red Blood Count 4.12 10^6/uL (4.1-5.3); Red Cell Distribution Width 12.3 % (12.1-15.1); White Blood Count 12.9 10^3/uL (4.0-10.0)
[2022-07-29 17:10] LABS: ABG PH Result 7.57 (7.35-7.45)
[2022-07-29 17:24] LABS: Alanine Aminotransferase 15 U/L (0-33); Albumin Level 4.7 g/dL (3.5-5.2); Alkaline Phosphatase 85 U/L (35-105); Aspartate Amino Transferase 32 U/L (0-32); Blood Urea Nitrogen 13 mg/dL (8-23); Calcium 9.8 mg/dL (8.5-10.5); Carbon Dioxide 23 mmol/L (22-29); Chloride 104 mmol/L (98-107); Globulin 3.2 g/dL (1.3-4.6); Glucose 134 mg/dL (65-115); Osmolality Calculated 298 mOsm/kg (285-295); Sodium 143 mmol/L (136-145); Total Bilirubin 0.7 mg/dL (0.15-1.2); Total Protein 7.9 g/dL (6.6-8.7)
[2022-07-29 17:26] LABS: Anion Gap 19.6 (5-19); Potassium 3.6 mmol/L (3.5-5.1)
[2022-07-29] MEDS: midazolam 1 mg/mL INJ 2 mL IVP (17:40)
[2022-07-29 18:01] VITALS: BP 163/88; PULSE 96; RESP 21; O2SAT 100
--- NOTE | 2022-07-29 18:03 | ECG_ITS ---
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 Measurements Intervals Olds Rate: 89 P: 71 FL: 117 QRS: 70 QRSD: 84 T: 63 QT: 302 QTc: 368 Interpretive Statements SINUS RHYTHM WITH SINUS ARRHYTHMIA WITH SHORT FL INTERVAL NONSPECIFIC ST & T-WAVE ABNORMALITY Compared to ECG 03/25/2022 00:30:42 Sinus tachycardia no longer present T-wave abnormality still present Electronically Signed On 07-29-2022 21:46:45 CDT by Florina Brunson M.D. [email or web address]
[2022-07-29] MEDS: haloperidol inj 5 mg/mL INJ 1 mL 2 MG IVP (18:08)
== END 2022-07-29 18:25 | disposition home or self-care (01) ==
PROVIDERS: Emergency Provider Family Medicine; PCP Family Medicine
DX: K59.00 Constipation, unspecified (principal); G89.29 Other chronic pain; R10.9 Unspecified abdominal pain
CPT/HCPCS: 36600; 51798; 74176; 80051; 80053; 82330; 82805; 85025; 93005; 96361; 96374; 96375; 99285; J1630; J2250; J2405; J3490; J7030